=== PATIENT | female | born 1995 | race Caucasian/White ===

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

== ENCOUNTER → 2017-02-13 | Outpatient (CLI) | payer OTHER ==
[~2017-02-13] MED LIST changes: -CEFD300C2 PO; -CHOL1000 PO; -SULF800T23 PO
== END | disposition home or self-care (01) ==
LOC: C.LABSPEC 15:00
PROVIDERS: ATTEND Physician Assistant
DX: N89.8 Other specified noninflammatory disorders of vagina (principal)

== ENCOUNTER 2017-05-14 22:09 | Emergency (ER) | payer OTHER ==
[~2017-05-14] VITALS: Ht 160 cm; Wt 55.0 kg
[~2017-05-14 22:09] MED LIST changes: +SULF800T23 PO
[2017-05-14 22:11] VITALS: TEMP 36.7; Ht 160 cm; Wt 55.0 kg
[2017-05-14] MEDS ORDERED: CHOL1000 PO (22:53)
[2017-05-14 22:56] LABS: MANUAL MICROSCOPIC REQUIRED? YES; URINE APPEARANCE CLOUDY (CLEAR); URINE BILIRUBIN NEG (NEG); URINE COLOR YELLOW; URINE NITRITE POS (NEG); URINE SPECIFIC GRAVITY 1.025 (1.000-1.030); UROBILINOGEN POS (NEG)
[2017-05-14 23:01] LABS: REVIEW REQ? NO
[2017-05-14 23:03] LABS: URINE RBC >30 /hpf (0-4); URINE WBC >30 /hpf (0-5)
[2017-05-14 23:04] LABS: URINE BACTERIA 2+ (NEG); ZZUR CULT IF INDIC CLEAN CATCH YES
[2017-05-14] MEDS ORDERED: PHENAZOPYRIDINE HCL 200 MG TAB PO STA (23:08)
[2017-05-14] MEDS ORDERED: CEFDINIR 300 MG CAP PO STA (23:08)
[2017-05-14] MEDS ORDERED: CEFD300C2 PO (23:10)
[2017-05-14] MEDS ORDERED: PHENAZOPYRIDINE HOME PACK 200 MG VIAL PO ONE (23:15)
[2017-05-14 23:34] VITALS: BP 129/78; PULSE 80; O2SAT 98
--- NOTE | 2017-05-15 03:55 | EMERGENCY ROOM VISIT NOTE ---
ED Visit Note First contact with patient: 22:18 CHIEF COMPLAINT: Frequent and painful urination HISTORY OF PRESENT ILLNESS: This 21 year old female presents to the emergency department complaining of increased frequency of urination, burning pain with urination, and a feeling of incomplete voiding for the past 4 or 5 days. The patient initially went to an urgent care clinic and was started on Bactrim. She has been on this medication for 3 days without significant improvement of symptoms. The patient passes very small volumes of urine with each episode of voiding. The patient does not have abdominal pain. They deny back pain, fever , or vaginal discharge. The patient has not frequent urinary tract infections in the past. Patient feels they are not at risk for STIs. REVIEW OF SYSTEMS: A 6 system review of systems was completed with positives and pertinent negatives listed in the HPI. ALLERGIES: No known allergies MEDICATIONS: No chronic medication PMH: Otherwise healthy SOCIAL HISTORY: Lives locally PHYSICAL EXAM: Vital Signs: Reviewed Nurse's notes, vital signs stable. GENERAL : White female in no acute distress, they do not appear toxic, well-developed, well-nourished. HEART: Regular rate and rhythm without murmur gallop or rub LUNG: Clear to auscultation bilateral ABDOMEN: Positive bowel sounds x 4. The abdomen is soft, mildly tender in the suprapubic area, but no masses or organs are felt. There is no CVA tenderness. The skin is clear. NEURO: Alert and oriented to person place and time. EMERGENCY DEPARTMENT COURSE: Physical exam and history were performed. Nursing notes and EMR were reviewed. The patient appears to have signs and symptoms of a urinary tract infection. Urine was collected and urine dip is highly suggestive of a UTI with culture pending. The patient has been on Bactrim recently, and I will transition her to Omnicef. She is to follow with her primary care physician in the next few days. She was otherwise invited back to the ER with any new, worsening, or concerning symptoms. Problem List Medical Problems: (1) Ovarian cyst Status: Chronic Social History Problems: (1) Depo contraception Status: Chronic Current/Historical Medications Scheduled Control Pills ( Control Pills), 1 TAB PO DAILY Cefdinir (Omnicef), 300 MG PO Q12H Cholecalciferol (Vitamin D3), 1 TAB PO DAILY Sulfa/Trimethoprim (Bactrim Ds 800MG/160MG), 1 TAB PO BID Allergies Coded Allergies: No Known Allergies (Unverified , 05/14/17) Vital Signs Date Time Temp Pulse Resp B/P (MAP) Pulse Ox O2 Delivery O2 Flow Rate FiO2 05/14/17 23:34 80 18 129/78 98 Room Air 05/14/17 22:11 36.7 105 16 135/82 95 Room Air Laboratory Results Test 05/14/17 22:26 Urine Color YELLOW Urine Appearance CLOUDY (CLEAR) Urine pH 7.0 (4.5-7.5) Urine Specific [place] 1.025 (1.000-1.030) Urine Protein 3+ (NEG) Urine Glucose (UA) TRACE (NEG) Urine Ketones NEG (NEG) Urine Occult Blood 2+ (NEG) Urine Nitrite POS (NEG) Urine Bilirubin NEG (NEG) Urine Urobilinogen POS (NEG) Urine Leukocyte Esterase TRACE (NEG) Urine RBC >30 /hpf (0-4) Urine WBC >30 /hpf (0-5) Urine Epithelial Cells >30 /lpf (0-5) Urine Bacteria 2+ (NEG) Urine Test NEG (NEG) Medications Administered Medications (Trade) Dose Ordered Sig/Vivek Route Start Time Stop Time Status Last Admin Dose Admin Cefdinir (Omnicef Cap) 300 mg ONE STAT PO 05/14/17 23:08 05/14/17 23:09 DC 05/14/17 23:08 300 MG Phenazopyridine HCl (Phenazopyridine HCl 200MG Home Pack) 1 homepack UD ONCE PO 05/14/17 23:15 05/14/17 23:16 DC 05/14/17 23:15 1 HOMEPACK Phenazopyridine HCl (Pyridium Tab) 200 mg NOW STAT PO 05/14/17 23:08 05/14/17 23:09 DC 05/14/17 23:08 200 MG Departure Information Impression Primary Impression: Urinary tract infection Dispostion Home / Self-Care Condition GOOD Prescriptions Cefdinir (OMNICEF) 300 Mg Cap 300 MG PO Q12H for 10 Days, #20 CAP Prov: Jaswant Kevin PA-C 05/14/17 Referrals No Doctor, Assigned (PCP) Forms HOME CARE DOCUMENTATION FORM, IMPORTANT VISIT INFORMATION Patient Instructions My [facility] Additional Instructions You were seen and evaluated today on an emergency basis only. This is not a substitute for, or an effort to provide, complete comprehensive medical care. It is not possible to recognize and treat all injuries or illnesses in a single emergency department visit. For this reason it is recommended that you followup with your primary care physician with any ongoing or persistent symptoms. Take Pyridium 2-3 times daily to help with pain control. This will change the color of your urine. For baseline pain relief you may alternate ibuprofen and acetaminophen every 4 hours for pain control. Take 600 mg ibuprofen (Advil) and then 4 hours later take 1000 mg acetaminophen (Tylenol). Do not take more than 3000 mg acetaminophen in a single day. Take Omnicef 300 mg twice daily for the next 10 days. You are welcome to return to the emergency department anytime with new, worsening, or concerning symptoms.
== END 2017-05-14 23:34 | disposition home or self-care (01) ==
LOC: C.EDB 22:10 → C.EDA 23:34
DX: N39.0 Urinary tract infection, site not specified (principal); R30.9 Painful micturition, unspecified; R35.0 Frequency of micturition

== ENCOUNTER → 2017-07-06 | Outpatient (CLI) | payer OTHER ==
[~2017-07-06] MED LIST changes: +CHOL1000 PO
== END | disposition home or self-care (01) ==
LOC: C.LAB1850 09:20
PROVIDERS: ATTEND Physician Assistant
DX: N91.2 Amenorrhea, unspecified (principal)

== ENCOUNTER → 2017-08-17 | Outpatient (CLI) | payer OTHER | END | disposition home or self-care (01) | LOC: C.LABSPEC 12:19 | PROVIDERS: ATTEND Physician Assistant | DX: N89.8 Other specified noninflammatory disorders of vagina (principal); R30.0 Dysuria ==

== ENCOUNTER 2017-09-18 19:31 | Observation (INO) | payer OTHER ==
[~2017-09-18] VITALS: Ht 160 cm; Wt 49.2 kg
[2017-09-18] MEDS ORDERED: LORAZEPAM 0.5 MG TAB SL STA (19:48)
[2017-09-18] MEDS ORDERED: SODIUM CHLORIDE 0.9% 1000ML 2,000 ML IV STA (19:48)
--- NOTE | 2017-09-18 20:01 | EMERGENCY ROOM VISIT NOTE ---
History Report prepared by Christiano: Kristine Cloud Under the Supervision of: Dr. Mauro García M.D. First contact with patient: 19:33 Stated Complaint: ANXIETY History of Present Illness The patient is a 21 year old female who presents to the Emergency Room with complaints of persistent anxiety that began about an hour prior to arrival. The patient states that she did "ice" last night, noting she woke up feeling fine. She reports that this is the first time she does it and that she normally does not do drugs or consume alcohol. The patient states that she was driving to [place] with her friends earlier today, when she began experiencing a tingling feeling throughout her body. She asked her friend to drive once she began experiencing palpitations and chest tightness. While waiting for the ambulance to arrive to the scene, the patient states that her entire body went numb and she felt like she could not move. She denies any nausea, recent illness , suicidal ideations, or homicidal ideations. The patient reports a history of anxiety, noting that she has had panic attacks in the past, which have not felt anything similar to her symptoms today. During her panic attacks, the patient states that she starts shaking but is able to keep them under control. She reports a history of anxiety, depression, and irregular periods, noting she does not take any medications. The patient states that she has not had her menstrual in about 4 months, noting that she has lost 20 pounds unintentionally since then. Source of History: patient Onset: an hour prior to arrival Position: other (global) Quality: other (anxiety) Timing: other (persistent) Associated Symptoms: + numbness (numb), No nausea Note: Associated symptoms include: palpitations, chest tightness, and felt like she could not move. Patient denies: recent illness, suicidal ideations, or homicidal ideations Review of Systems See HPI for pertinent positives and negatives. A total of ten systems were reviewed and were otherwise negative. Past Medical & Surgical Medical Problems: (1) Heart palpitations (2) Hx: UTI (urinary tract infection) (3) Hypokalemia (4) Ovarian cyst Social History Problems: (1) Depo contraception Family History Cancer Hypertension Social History Smoking Status: Never Smoker Smokeless Tobacco Use: Unknown Alcohol Use: none Drug Use: none Marital Status: single Housing Status: lives with family Occupation Status: student Current/Historical Medications No Active Prescriptions or Reported Meds Allergies Coded Allergies: No Known Allergies (Unverified , 05/14/17) Physical Exam Vital Signs Date Time Temp Pulse Resp B/P (MAP) Pulse Ox O2 Delivery O2 Flow Rate FiO2 09/18/17 22:30 109 18 126/95 100 Room Air 09/18/17 22:15 106 26 100 Room Air 09/18/17 22:01 09/18/17 22:01 09/18/17 22:00 113 25 09/18/17 21:50 95 25 100 09/18/17 21:35 101 23 100 09/18/17 21:30 142/92 09/18/17 21:20 120 19 100 09/18/17 21:15 90 15 99 Room Air 09/18/17 21:10 148/96 09/18/17 21:01 118/98 09/18/17 21:00 116 17 100 Room Air 09/18/17 20:45 92 17 100 Room Air 09/18/17 20:30 136 26 136/91 100 09/18/17 20:16 112 23 93 Room Air 09/18/17 20:05 133/95 09/18/17 19:52 127 09/18/17 19:46 113 20 100 Room Air 09/18/17 19:39 134/111 09/18/17 19:38 36.8 121 22 134/111 100 Room Air Physical Exam GENERAL: Awake, alert, anxious-appearing but in no distress HENT: Dry mucous membranes. Normocephalic, atraumatic. Oropharynx unremarkable. EYES: Normal conjunctiva. Sclera non-icteric. IRINA. Pupils 3mm b/l. No nystagmus. NECK: Supple. No nuchal rigidity. FROM. No JVD. RESPIRATORY: Clear to auscultation. CARDIAC: Heartbeat is sinus tachycardic. Extremities warm and well perfused. Pulses equal. ABDOMEN: Soft, non-distended. No tenderness to palpation. No rebound or guarding. No masses. RECTAL: Deferred. MUSCULOSKELETAL: Chest examination reveals no tenderness. The back is symmetrical on inspection without obvious abnormality. There is no CVA tenderness to palpation. No joint edema. LOWER EXTREMITIES: Calves are equal size bilaterally and non-tender. No edema. No discoloration. NEURO: Normal reflexes. No clonus or rigidity. Finger to nose intact. No sensory or motor deficits noted. SKIN: No rash or jaundice noted. Medical Decision & Procedures ER Provider Diagnostic Interpretation: Radiology results as stated below per my review and radiologist interpretation: CHEST ONE VIEW PORTABLE CLINICAL HISTORY: Chest pain. Anxiety. COMPARISON STUDY: Chest radiograph and chest CT July 27, 2016. FINDINGS: Lung volumes are normal. No pneumothorax or pleural effusion is noted. Lungs are clear. Cardiac size is normal. Mediastinal contours are normal. There is no evidence for pulmonary edema. IMPRESSION: No acute cardiopulmonary findings. Electronically signed by: Elmer Palm M.D. 09/18/2017 8:16 PM Dictated Date/Time: 09/18/2017 8:15 PM Laboratory Results 09/18/17 19:10 Red Blood Count 4.71, Mean Corpuscular Volume 82.2, Mean Corpuscular Hemoglobin 28.5, Mean Corpuscular Hemoglobin Concent 34.6, Mean Platelet Volume 10.8, Neutrophils (%) (Auto) 61.5, Lymphocytes (%) (Auto) 30.0, Monocytes (%) (Auto) 7.7, Eosinophils (%) (Auto) 0.3, Basophils (%) (Auto) 0.3, Neutrophils # (Auto) 7.72, Lymphocytes # (Auto) 3.76, Monocytes # (Auto) 0.97, Eosinophils # (Auto) 0.04, Basophils # (Auto) 0.04 09/18/17 19:10 Test 09/18/17 19:10 09/18/17 20:10 White Blood Count 12.55 K/uL (4.8-10.8) Red Blood Count 4.71 M/uL (4.2-5.4) Hemoglobin 13.4 g/dL (12.0-16.0) Hematocrit 38.7 % (37-47) Mean Corpuscular Volume 82.2 fL (80-100) Mean Corpuscular Hemoglobin 28.5 pg (25-34) Mean Corpuscular Hemoglobin Concent 34.6 g/dl (32-36) Platelet Count 277 K/uL (130-400) Mean Platelet Volume 10.8 fL (7.4-10.4) Neutrophils (%) (Auto) 61.5 % Lymphocytes (%) (Auto) 30.0 % Monocytes (%) (Auto) 7.7 % Eosinophils (%) (Auto) 0.3 % Basophils (%) (Auto) 0.3 % Neutrophils # (Auto) 7.72 K/uL (1.4-6.5) Lymphocytes # (Auto) 3.76 K/uL (1.2-3.4) Monocytes # (Auto) 0.97 K/uL (0.11-0.59) Eosinophils # (Auto) 0.04 K/uL (0-0.5) Basophils # (Auto) 0.04 K/uL (0-0.2) RDW Standard Deviation 42.7 fL (36.4-46.3) RDW Coefficient of Variation 14.2 % (11.5-14.5) Immature Granulocyte % (Auto) 0.2 % Immature Granulocyte # (Auto) 0.02 K/uL (0.00-0.02) Anion Gap 13.0 mmol/L (3-11) Est Creatinine Clear Calc Drug Dose 65.8 ml/min Estimated GFR () 89.2 Estimated GFR (Non- 76.9 BUN/Creatinine Ratio 9.7 (10-20) Calcium Level 9.4 mg/dl (8.5-10.1) Phosphorus Level 1.4 mg/dl (2.5-4.9) Magnesium Level 2.3 mg/dl (1.8-2.4) Total Bilirubin 0.6 mg/dl (0.2-1) Direct Bilirubin 0.1 mg/dl (0-0.2) Aspartate Amino Transf (AST/SGOT) 19 U/L (15-37) Alanine Aminotransferase (ALT/SGPT) 22 U/L (12-78) Alkaline Phosphatase 81 U/L (45-117) Troponin I < 0.015 ng/ml (0-0.045) Total Protein 8.6 gm/dl (6.4-8.2) Albumin 4.9 gm/dl (3.4-5.0) Globulin 3.7 gm/dl (2.5-4.0) Albumin/Globulin Ratio 1.3 (0.9-2) Thyroid Stimulating Hormone (TSH) 6.460 uIu/ml (0.300-4.500) Free Thyroxine 1.45 ng/dl (0.80-1.60) Free Triiodothyronine 3.90 pg/ml (2.30-4.20) Urine Color YELLOW Urine Appearance TURBID (CLEAR) Urine pH 7.0 (4.5-7.5) Urine Specific [place] 1.009 (1.000-1.030) Urine Protein TRACE (NEG) Urine Glucose (UA) NEG (NEG) Urine Ketones 1+ (NEG) Urine Occult Blood 2+ (NEG) Urine Nitrite NEG (NEG) Urine Bilirubin NEG (NEG) Urine Urobilinogen NEG (NEG) Urine Leukocyte Esterase LARGE (NEG) Urine WBC (Auto) >30 /hpf (0-5) Urine RBC (Auto) 10-30 /hpf (0-4) Urine Hyaline Casts (Auto) 0 /lpf (0-5) Urine Epithelial Cells (Auto) >30 /lpf (0-5) Urine Bacteria (Auto) 4+ (NEG) Urine Pathogenic Casts /lpf (0) Urine Yeast (Auto) (NONE PRSENT) Urine Test NEG (NEG) Urine Opiates Screen NEG (NEG) Urine Methadone, Qualitative NEG (NEG) Urine Barbiturates NEG (NEG) Urine Phencyclidine (PCP) Level NEG (NEG) Ur Amphetamine/Methamphetamine POS (NEG) MDMA (Ecstasy) Screen NEG (NEG) Urine Benzodiazepines Screen NEG (NEG) Urine Cocaine Metabolite NEG (NEG) Urine Marijuana (THC) NEG (NEG) Ethyl Alcohol mg/dL < 3.0 mg/dl (0-3) Laboratory results reviewed by me Medications Administered Medications (Trade) Dose Ordered Sig/Vivek Route Start Time Stop Time Status Last Admin Dose Admin Sodium Chloride 2,000 ml @ 999 mls/hr Q2H1M STAT IV 09/18/17 19:48 09/18/17 21:48 DC 09/18/17 20:09 999 MLS/HR Lorazepam (Ativan Tab) 0.5 mg NOW STAT SL 09/18/17 19:48 09/18/17 19:51 DC 09/18/17 20:08 0.5 MG Potassium Chloride (Klor-Con M10) 40 meq NOW STAT PO 09/18/17 21:12 09/18/17 21:14 DC 09/18/17 21:42 40 MEQ Potassium Chloride 10 meq/ Prmx 100 ml @ 100 mls/hr Q1H IV 09/18/17 21:30 09/19/17 01:29 DC 09/19/17 01:01 100 MLS/HR Potassium Phosphate 30 mmol/ Sodium Chloride 510 ml @ 88 mls/hr ONE ONCE IV 09/18/17 22:15 09/19/17 04:02 09/19/17 00:16 88 MLS/HR ECG Per My Interpretation Indication: palpitations Rate (beats per minute): 116 Rhythm: sinus tachycardia Findings: no acute ischemic change, other (normal axis, normal intervals) ED Course 1937: The patient was evaluated in room A7. A complete history and physical exam was performed. 2202: I reevaluated the patient, who was resting comfortably. 2221: I reevaluated the patient. Her mother has a history of low potassium. 7: I discussed the patient with Dr. Christian Blunt [facility] - He will evaluate the patient for further treatment. 0: I reevaluated the patient and updated her and her family on test findings. They verbalized agreement of the treatment plan. Medical Decision I reviewed the patient's past medical history, medications, and the nursing notes as described above. Differential diagnosis: Etiologies such as mood disorder, infection, hypoglycemia, electrolyte abnormalities, cardiac sources, intracerebral event, toxicologic, neurologic, as well as others were entertained. 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 Of note, patient reports using ICE (meth) yesterday evening for the first time but denies any regular drug or etoh use. Awoke this morning without any sx. On arrival, the she is anxious appearing, but in no acute distress, afebrile, HR 130s but vital signs otherwise. On exam the patient has normal reflexes, no clonus or rigidity. She does not demonstrate any evidence of toxidrome at this time. Denies SI/HI or history thereof. WBC 12.5, nonspecific. Labs notable for K 2.4 and phosphorus 1.4. EKG sinus tachycardia with normal intervals and no ischemia. CXR unremarkable. Psych CM evaluated patient and while patient has intermittently had passive thoughts of "wanting 'it' to end" she denies any thoughts of wanting to hurt herself and says she would never want to the do that to her family. Thus, no concerns for patient's safety at this time. Regarding the patient's report of 30lb weight loss in the setting of her electrolyte abnormalities the patient denies any body image concerns and denies any bulemia/anorexia behaviors. Given the patient 's appreciable electrolyte abnormalities with associated symptoms (while possibly exacerbated by her h/o of anxiety), it is reasonable to admit the patient for continued electrolyte repletion. Case d/w [facility] hospitalist, who will admit the patient for further management. Medication Reconcilliation Current Medication List: was personally reviewed by me Blood Pressure Screening Patient's blood pressure: Normal blood pressure Blood pressure disposition: Did not require urgent referral Consults Time Called: [phone] Consulting Physician: LES Weiss Returned Call: [phone] I discussed the patient with LES Weiss - He will evaluate the patient for further treatment. Impression Primary Impression: Hypokalemia Additional Impressions: Hypophosphatemia Dehydration Scribe Attestation The scribe's documentation has been prepared under my direction and personally reviewed by me in its entirety. I confirm that the note above accurately reflects all work, treatment, procedures, and medical decision making performed by me. Departure Information Dispostion Being Evaluated By Hospitalist Prescriptions No Active Prescriptions or Reported Meds Referrals No Doctor, Assigned (PCP) Forms HOME CARE DOCUMENTATION FORM, IMPORTANT VISIT INFORMATION Problem Qualifiers
[2017-09-18 20:15] LABS: BASO % 0.3 %; BASO ABS # 0.04 K/uL (0-0.2); EOS % 0.3 %; EOS ABS # 0.04 K/uL (0-0.5); HEMATOCRIT 38.7 % (37-47); HEMOGLOBIN 13.4 g/dL (12.0-16.0); IG# 0.02 K/uL (0.00-0.02); LYMPH ABS # 3.76 K/uL (1.2-3.4); MEAN CELL VOLUME 82.2 fL (80-100); MEAN CORPUSCULAR HEMOGLOBIN 28.5 pg (25-34); MEAN CORPUSCULAR HGB CONC 34.6 g/dl (32-36); MEAN PLATELET VOLUME 10.8 fL (7.4-10.4); MONO % 7.7 %; MONO ABS # 0.97 K/uL (0.11-0.59); NEUT % 61.5 %; NEUT ABS # 7.72 K/uL (1.4-6.5); PLATELET COUNT 277 K/uL (130-400); RED CELL DISTRIBUTION WIDTH CV 14.2 % (11.5-14.5); RED CELL DISTRIBUTION WIDTH SD 42.7 fL (36.4-46.3); WHITE BLOOD COUNT 12.55 K/uL (4.8-10.8)
--- NOTE | 2017-09-18 20:17 | DIAGNOSTIC IMAGING REPORT ---
CHEST ONE VIEW PORTABLE CLINICAL HISTORY: Chest pain. Anxiety. COMPARISON STUDY: Chest radiograph and chest CT July 27, 2016. FINDINGS: Lung volumes are normal. No pneumothorax or pleural effusion is noted. Lungs are clear. Cardiac size is normal. Mediastinal contours are normal. There is no evidence for pulmonary edema. IMPRESSION: No acute cardiopulmonary findings. Electronically signed by: Elmer Palm M.D. 09/18/2017 8:16 PM Dictated Date/Time: 09/18/2017 8:15 PM
[2017-09-18 20:57] LABS: ALBUMIN 4.9 gm/dl (3.4-5.0); ALT/SGPT 22 U/L (12-78); AST/SGOT 19 U/L (15-37); BLOOD UREA NITROGEN 10 mg/dl (7-18); CALCIUM 9.4 mg/dl (8.5-10.1); CARBON DIOXIDE 19 mmol/L (21-32); CREATININE 1.05 mg/dl (0.60-1.20); GLUCOSE 103 mg/dl (70-99); POTASSIUM 2.4 mmol/L (3.5-5.1); SODIUM 136 mmol/L (136-145); TOTAL PROTEIN 8.6 gm/dl (6.4-8.2)
[2017-09-18 20:59] LABS: ALKALINE PHOSPHATASE 81 U/L (45-117)
[2017-09-18] MEDS ORDERED: POTASSIUM CHLORIDE 10 MEQ TABCR PO STA (21:12)
[2017-09-18] MEDS ORDERED: POTASSIUM CHLR 20 MEQ / WTR 40 MEQ in PREMIXED WATER 100 ML IV STA (21:12)
[2017-09-18] MEDS: POTASSIUM CHLR 10MEQ / WTR IV SCH ×2 (21:42→22:56)
[2017-09-18 21:56] LABS: PHOSPHORUS 1.4 mg/dl (2.5-4.9)
[2017-09-18] MEDS ORDERED: POTASSIUM PHOSPHATE INJ 30 MMOL in SODIUM CHLORIDE 0.9% 500ML 500 ML IV ONE (22:15)
[2017-09-18] MEDS ORDERED: POTASSIUM PHOS 3 MMOL/1 ML INFUSION IV STA ×2 (22:22→22:26)
[2017-09-18] MEDS ORDERED: SODIUM CHLORIDE 0.9% 1000ML 1,000 ML IV STA (22:26)
[2017-09-18] MEDS ORDERED: ALUMINUM/MAGNESIUM/SIMETH (MAALOX MAX) 30 ML UDC PO PRN (22:30)
[2017-09-18] MEDS ORDERED: MAGNESIUM HYDROXIDE SUSP 30 ML UDC PO PRN (22:30)
[2017-09-18] MEDS ORDERED: ONDANSETRON INJ 2 MG/ML 2 ML VIAL IV PRN (22:30)
[2017-09-18] MEDS ORDERED: POTASSIUM CHLR 10 MEQ / WTR 10 MEQ in PREMIXED WATER 100 ML IV SCH (22:30)
[2017-09-18] MEDS ORDERED: ACETAMINOPHEN 325 MG TAB PO PRN (22:30)
--- NOTE | 2017-09-18 23:32 | History and Physical ---
History & Physical Date & Time of Service: Sep 18, 2017 at 22:25 Chief Complaint: Anxiety Primary Care Physician: No Doctor, Assigned History of Present Illness Source: patient 21 y/o F without active medical issues. 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 Today, while driving she became lightheaded. She pulled over and then describes onset of anxiety, chest tightness, palpitations, generalized muscle cramps and paresthesias. She felt like she could not talk or support her weight. Her symptoms lasted several minutes prompting her to call EMS. On arrival to the ER, initial labs revealed a K of 2.4 and a low phos as well. An EKG revealed sinus tachycardia. She denies nausea, vomiting or diarrhea and denies a change in eating habits related to her drug use the prior evening. Past Medical/Surgical History Denies active medical issues Family History No pertinent family history Both parents alive and well Social History Denies drinking, smoking. Denies regular use of any drugs. Smoking Status: Never Smoker Drug Use: none Marital Status: single Occupational Status: student Allergies Coded Allergies: No Known Allergies (Unverified , 05/14/17) Home Medications No Active Prescriptions or Reported Meds Review of Systems Constitutional: No fever, No chills, No sweats Eyes: No worsening of vision ENT: No hearing loss, No nasal symptoms Respiratory: No cough, No sputum, No wheezing Cardiovascular: + chest pain, + palpitations Abdomen: No pain, No nausea, No vomiting Musculoskeletal: + muscle pain (widespread cramping), No joint pain Genitourinary - Female: No dysuria, No urinary frequency, No urinary urgency Neurologic: + numbness/tingling, + problem reported (lightheadedness), No memory loss, No paralysis Psychiatric: No depression symptoms Endocrine: No fatigue Hematologic / Lymphatic: No abnormal bleeding/bruising Integumentary: No rash Physical Exam Vital Signs Date Time Temp Pulse Resp B/P (MAP) Pulse Ox O2 Delivery O2 Flow Rate FiO2 09/18/17 22:01 09/18/17 21:50 95 25 100 09/18/17 21:35 101 23 100 09/18/17 21:30 142/92 09/18/17 21:20 120 19 100 09/18/17 21:15 90 15 99 Room Air 09/18/17 21:10 148/96 09/18/17 21:01 118/98 09/18/17 21:00 116 17 100 Room Air 09/18/17 20:45 92 17 100 Room Air 09/18/17 20:30 136 26 136/91 100 09/18/17 20:16 112 23 93 Room Air 09/18/17 20:05 133/95 09/18/17 19:52 127 09/18/17 19:46 113 20 100 Room Air 09/18/17 19:39 134/111 09/18/17 19:38 36.8 121 22 134/111 100 Room Air General Appearance: WD/WN Head: normocephalic Eyes: normal inspection ENT: normal ENT inspection, pharynx normal Neck: supple, no JVD Respiratory/Chest: chest non-tender, lungs clear, normal breath sounds Cardiovascular: regular rate, rhythm, no edema, no gallop Abdomen/GI: normal bowel sounds, non tender, soft Back: normal inspection, no CVA tenderness Extremities/Musculoskelatal: normal inspection, no calf tenderness, normal capillary refill 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, no motor/sensory deficits, alert, oriented x 3 Skin: normal color Diagnostics Laboratory Results Results Past 24 Hours Test 09/18/17 19:10 09/18/17 20:10 Range/Units White Blood Count 12.55 4.8-10.8 K/uL Red Blood Count 4.71 4.2-5.4 M/uL Hemoglobin 13.4 12.0-16.0 g/dL Hematocrit 38.7 37-47 % Mean Corpuscular Volume 82.2 80-100 fL Mean Corpuscular Hemoglobin 28.5 25-34 pg Mean Corpuscular Hemoglobin Concent 34.6 32-36 g/dl Platelet Count 277 130-400 K/uL Mean Platelet Volume 10.8 7.4-10.4 fL Neutrophils (%) (Auto) 61.5 % Lymphocytes (%) (Auto) 30.0 % Monocytes (%) (Auto) 7.7 % Eosinophils (%) (Auto) 0.3 % Basophils (%) (Auto) 0.3 % Neutrophils # (Auto) 7.72 1.4-6.5 K/uL Lymphocytes # (Auto) 3.76 1.2-3.4 K/uL Monocytes # (Auto) 0.97 0.11-0.59 K/uL Eosinophils # (Auto) 0.04 0-0.5 K/uL Basophils # (Auto) 0.04 0-0.2 K/uL RDW Standard Deviation 42.7 36.4-46.3 fL RDW Coefficient of Variation 14.2 11.5-14.5 % Immature Granulocyte % (Auto) 0.2 % Immature Granulocyte # (Auto) 0.02 0.00-0.02 K/uL Sodium Level 136 136-145 mmol/L Potassium Level 2.4 3.5-5.1 mmol/L Chloride Level 103 98-107 mmol/L Carbon Dioxide Level 19 21-32 mmol/L Anion Gap 13.0 3-11 mmol/L Blood Urea Nitrogen 10 7-18 mg/dl Creatinine 1.05 0.60-1.20 mg/dl Est Creatinine Clear Calc Drug Dose 65.8 ml/min Estimated GFR () 89.2 Estimated GFR (Non- 76.9 BUN/Creatinine Ratio 9.7 10-20 Random Glucose 103 70-99 mg/dl Calcium Level 9.4 8.5-10.1 mg/dl Phosphorus Level 1.4 2.5-4.9 mg/dl Magnesium Level 2.3 1.8-2.4 mg/dl Total Bilirubin 0.6 0.2-1 mg/dl Direct Bilirubin 0.1 0-0.2 mg/dl Aspartate Amino Transf (AST/SGOT) 19 15-37 U/L Alanine Aminotransferase (ALT/SGPT) 22 12-78 U/L Alkaline Phosphatase 81 45-117 U/L Troponin I < 0.015 0-0.045 ng/ml Total Protein 8.6 6.4-8.2 gm/dl Albumin 4.9 3.4-5.0 gm/dl Globulin 3.7 2.5-4.0 gm/dl Albumin/Globulin Ratio 1.3 0.9-2 Thyroid Stimulating Hormone (TSH) 6.460 0.300-4.500 uIu/ml Urine Color YELLOW Urine Appearance TURBID CLEAR Urine pH 7.0 4.5-7.5 Urine Specific [place] 1.009 1.000-1.030 Urine Protein TRACE NEG Urine Glucose (UA) NEG NEG Urine Ketones 1+ NEG Urine Occult Blood 2+ NEG Urine Nitrite NEG NEG Urine Bilirubin NEG NEG Urine Urobilinogen NEG NEG Urine Leukocyte Esterase LARGE NEG Urine WBC (Auto) >30 0-5 /hpf Urine RBC (Auto) 10-30 0-4 /hpf Urine Hyaline Casts (Auto) 0 0-5 /lpf Urine Epithelial Cells (Auto) >30 0-5 /lpf Urine Bacteria (Auto) 4+ NEG Urine Pathogenic Casts 0 /lpf Urine Yeast (Auto) NONE PRSENT Urine Test NEG NEG Urine Opiates Screen NEG NEG Urine Methadone, Qualitative NEG NEG Urine Barbiturates NEG NEG Urine Phencyclidine (PCP) Level NEG NEG Ur Amphetamine/Methamphetamine POS NEG MDMA (Ecstasy) Screen NEG NEG Urine Benzodiazepines Screen NEG NEG Urine Cocaine Metabolite NEG NEG Urine Marijuana (THC) NEG NEG Ethyl Alcohol mg/dL < 3.0 0-3 mg/dl EKG Sinus tachycardia Impression Assessment and Plan 21 y/o F without active medical issues. 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 Today, while driving she became lightheaded. She pulled over and then describes onset of anxiety, chest tightness, palpitations, generalized muscle cramps and paresthesias. She felt like she could not talk or support her weight. Her symptoms lasted several minutes prompting her to call EMS. On arrival to the ER, initial labs revealed a K of 2.4 and a low phos as well. An EKG revealed sinus tachycardia. She denies nausea, vomiting or diarrhea and denies a change in eating habits related to her drug use the prior evening. The pt is assigned to telemetry as her symptoms may presumably have been the result of her electrolyte abnormalities. There is no clear connection between amphetamine use and hypokalemia or hypophosphatemia on review of literature. The pt denies that her regular diet was interrupted and denies nausea, vomiting or diarrhea. She has been encouraged not to use amphetamines in the future regardless. She will be monitored on telemetry as we replace her electrolytes. BMP will be checked serially. As we do not have a clear etiology for her deficiencies, it would be reasonable to request she check her electrolytes a few days following discharge and follow the results with her primary MD. Full code - Heparin prophylaxis Total time for this admit including review of labs, meds, EKG - discussion with pt and ER attending - 38 min Level of Care Telemetry Resuscitation Status FULL RESUSCITATION VTE Prophylaxis Given or contraindicated: Unfractionated heparin SQ
[2017-09-19 00:05] VITALS: BP 132/89; PULSE 91; TEMP 36.9; O2SAT 98; Ht 160 cm; Wt 49.2 kg
[2017-09-19] MEDS ORDERED: D5NSS + 20MEQ KCL 1,000 ML IV SCH (00:30)
[2017-09-19] MEDS ORDERED: IV FLUIDS COMPLETED PRN (01:00)
[2017-09-19] MEDS: POTASSIUM CHLR 10MEQ / WTR IV SCH ×2 (01:01→01:57)
[2017-09-19] MEDS: POT PHOSPHATE MONOBASIC W/ SOD TAB PO SCH ×2 (01:39→07:32)
[2017-09-19] MEDS ORDERED: COUGH DROP (SUGAR FREE) LOZ 24 LOZ/1 BOX LOZ ONE (01:41)
[2017-09-19 04:00] VITALS: BP 120/80; PULSE 71; TEMP 36.7; O2SAT 100
[2017-09-19 05:06] LABS: BLOOD UREA NITROGEN 6 mg/dl (7-18); CALCIUM 8.3 mg/dl (8.5-10.1); CARBON DIOXIDE 21 mmol/L (21-32); CREATININE 0.63 mg/dl (0.60-1.20); GLUCOSE 101 mg/dl (70-99); SODIUM 139 mmol/L (136-145)
[2017-09-19 05:08] LABS: PHOSPHORUS 6.2 mg/dl (2.5-4.9)
[2017-09-19 05:11] LABS: INR 1.1 (0.9-1.1)
[2017-09-19 05:48] LABS: POTASSIUM 4.4 mmol/L (3.5-5.1)
[2017-09-19] MEDS ORDERED: HEPARIN SOD 5000 UNIT/0.5 ML CARP SQ SCH (06:30)
[2017-09-19 07:39] VITALS: BP 104/64; PULSE 94; TEMP 37; O2SAT 99
[2017-09-19 09:42] LABS: CALCIUM 8.8 mg/dl (8.5-10.1); CREATININE 0.68 mg/dl (0.60-1.20)
--- NOTE | 2017-09-19 10:43 | Discharge Summary ---
Discharge Summary Date of Service Sep 19, 2017. Discharge Summary Admission Date: Sep 18, 2017 at 22:38 Discharge Date: Sep 19, 2017 Discharge Disposition: Home Principal Diagnosis: Palpitations Problems/Secondary Diagnoses: hypokalemia unexplained weight loss fatigue amenorrhea Discharge Exam Pt is resting comfortably in bed. Reports chronic anxiety and depression, with 1 anxiety attack per week. 5month h/o amenorrhea and fatigue and unexplained weight loss of approx 20 pounds. Reports being a good eater. Recent use of recreational amphetamine substance "Ice" 2 days ago, slept well 2 hours later, went to work with no issues the following day, and then yesterday afternoon began feeling whole body cramps, palpitations, shortness of breath and tingling. Feels a heaviness in her chest. Denies diarrhea/constipation, fevers/chills, or sick contacts. Reports her mother has low potassium. ROS See HPI for pertinent positives and negatives. PE GENERAL: Awake, alert, well-appearing, in no distress HENT: Normocephalic, atraumatic. Good dentition. EYES: Normal conjunctiva. Sclera non-icteric. NECK: Supple. No nuchal rigidity. FROM. No JVD. No thyromegaly. RESPIRATORY: Clear to auscultation. CARDIAC: Regular rate, normal rhythm. Extremities warm and well perfused. Pulses equal. ABDOMEN: Soft, non-distended. No tenderness to palpation. No rebound or guarding. No masses. EXTREMITIES: Calves are equal size bilaterally and non-tender. No edema. No discoloration. No evidence of scarring or lesions on dorsal surfaces of hands. NEURO: No motor deficits noted. SKIN: No rash or jaundice noted. Hospital Course Ms. Villalba is a 21 yo female admitted for heart palpitations and found to have hypokalemia of 2.4. Supplemented, potassium normal on discharge. Discussed pt's recent medical history. 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 She reports chronic anxiety, for which she has been on an antidepressant, amenorrhea and fatigue and unexplained weight loss 20 lbs for about 5 months. 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 Urine was positive for amphetamine. Pt denies excessive dieting. Says she was seen by [facility] [place] assistant for amenorrhea, but has not followed up with ultrasound at this point. Pt lives alone, 10 minutes from her mother's house. Symptoms are hard to link together to one source, as TSH is elevated but T3 and T4 are both normal. Other tests to consider are PTH and Vit D given mildly low PO4. EKG was normal here. Otherwise psychology may be a component. Hypokalemia unlikely due to amphetamine use. Will follow up with PCP Dr. Bronson Adams in clinic in 1 week. Repeat BMP recommended in 2-3 days. Resident Physician Supervision Note: I was present with Dr. Adams during the history and exam. I discussed the case with the resident and agree with the findings and plan as documented in the note. Potassium is corrected. Patient reports three to six month history of amenorrhea, fatigue, and weight loss. It is unclear if this is related to her acute hypokalemia, and will need further investigation as an outpatient. She does not have a PCP but will now follow up in our office a week from today. Her TSH was slightly elevated, but T4 was normal; she has symptoms of both hyperthyroidism (weight loss) and hypothyroidism (amenorrhea). Documented By: Jeff Alba Total Time Spent: Less than 30 minutes This includes examination of the patient, discharge planning, medication reconciliation, and communication with other providers. Discharge Instructions Please refer to the electronic Patient Visit Report (Discharge Instructions) for additional information. Additional Copies To Hayley Adams M.D.
[2017-09-19 10:50] VITALS: BP 114/75; PULSE 83; TEMP 37; O2SAT 99
--- NOTE | 2017-09-19 10:52 | Discharge Instructions ---
Discharge Instructions Date of Service Sep 19, 2017. Admission Reason for Admission: Heart Pallpitations, Hypokalemia Discharge Discharge Diagnosis / Problem: Heart palpitations, hypokalemia Discharge Goals Goal(s): Decrease discomfort, Improve function, Learn about illness, Diagnostic testing, Therapeutic intervention Activity Recommendations Activity Limitations: resume your previous activity . Instructions / Follow-Up Instructions / Follow-Up You were admitted due to palpitations and cramping and found to have a low potassium of 2.4. We repleted your electrolytes, and these are normal this morning, however we recommend this be rechecked in 2-3 days to ensure that they remain normal. Your urine was positive for amphetamines. We discussed stopping all recreational drug use due to its inherent risks. If you feel you need additional counseling or support or you think you are addicted, please discuss this with your primary care physician. You also report other symptoms of fatigue, missed periods and weight loss. This should be discussed with your primary care physician as it may be due to an underlying problem with your hormones. Your TSH was elevated which may or may not be related. This will require further work up with your primary care physician. Please keep your appointment with me in the office for next Sunday afternoon. I look forward to seeing you then. Current Hospital Diet Patient's current hospital diet: Regular Diet Discharge Diet Recommended Diet: Regular Diet Pending Studies Studies pending at discharge: no Medical Emergencies . Who to Call and When: Medical Emergencies: If at any time you feel your situation is an emergency, please call 911 immediately. . Non-Emergent Contact Non-Emergency issues call your: Primary Care Provider . . "Provider Documentation" section prepared by Hayley Adams. .
[2017-09-19 12:26] LABS: BLOOD UREA NITROGEN 5 mg/dl (7-18); CALCIUM 8.4 mg/dl (8.5-10.1); CARBON DIOXIDE 22 mmol/L (21-32); CREATININE 0.62 mg/dl (0.60-1.20); GLUCOSE 101 mg/dl (70-99); POTASSIUM 3.8 mmol/L (3.5-5.1); SODIUM 138 mmol/L (136-145)
[2017-09-19 13:09] VITALS: BP 114/75; PULSE 83; TEMP 37; O2SAT 99
[2017-09-19] MEDS ORDERED: HYDR25CA PO (19:14)
== END 2017-09-19 14:07 | disposition home or self-care (01) ==
LOC: EDBD 19:31 → C.EDA 19:32 → C.2T 22:38 → ENRESERV 22:51
PROVIDERS: ADMIT Internal Medicine; ATTEND Family Medicine
DX: R00.2 Palpitations (principal); E87.6 Hypokalemia; R63.4 Abnormal weight loss; R53.83 Other fatigue; N91.2 Amenorrhea, unspecified; F15.10 Other stimulant abuse, uncomplicated; Z80.9 Family history of malignant neoplasm, unspecified; Z82.49 Family history of ischemic heart disease and other diseases of the circulatory system

== ENCOUNTER 2017-09-19 16:53 | Emergency (ER) | payer OTHER ==
[~2017-09-19] VITALS: Ht 160 cm; Wt 69.1 kg
[2017-09-19 17:04] VITALS: TEMP 36.7; Ht 160 cm; Wt 69.1 kg
[2017-09-19] MEDS: SODIUM CHLORIDE 0.9% 1000ML 1,000 ML IV STA (17:19)
--- NOTE | 2017-09-19 17:47 | DIAGNOSTIC IMAGING REPORT ---
CHEST ONE VIEW PORTABLE CLINICAL HISTORY: palpitations COMPARISON STUDY: September 18, 2017 FINDINGS: The cardiac and mediastinal contours are normal. There is no evidence of focal pulmonary consolidation. There is no evidence of failure. No pleural effusions are visualized.[ IMPRESSION: No active disease in the chest. Electronically signed by: Matt Ritter M.D. 09/19/2017 5:45 PM Dictated Date/Time: 09/19/2017 5:45 PM
[2017-09-19 18:04] LABS: BASO % 0.3 %; BASO ABS # 0.03 K/uL (0-0.2); EOS % 1.8 %; EOS ABS # 0.17 K/uL (0-0.5); HEMATOCRIT 35.6 % (37-47); HEMOGLOBIN 12.1 g/dL (12.0-16.0); IG# 0.02 K/uL (0.00-0.02); MEAN CORPUSCULAR HEMOGLOBIN 28.5 pg (25-34); MEAN PLATELET VOLUME 10.6 fL (7.4-10.4); MONO % 8.3 %; NEUT % 61.4 %; NEUT ABS # 5.92 K/uL (1.4-6.5); PLATELET COUNT 253 K/uL (130-400); RED CELL DISTRIBUTION WIDTH CV 14.6 % (11.5-14.5); RED CELL DISTRIBUTION WIDTH SD 45.3 fL (36.4-46.3); WHITE BLOOD COUNT 9.64 K/uL (4.8-10.8)
[2017-09-19 18:23] LABS: ALT/SGPT 18 U/L (12-78); AST/SGOT 13 U/L (15-37); BLOOD UREA NITROGEN 6 mg/dl (7-18); CARBON DIOXIDE 21 mmol/L (21-32); CREATININE 0.71 mg/dl (0.60-1.20); GLUCOSE 92 mg/dl (70-99); POTASSIUM 3.8 mmol/L (3.5-5.1); SODIUM 138 mmol/L (136-145)
[2017-09-19 18:28] LABS: ALKALINE PHOSPHATASE 70 U/L (45-117); TOTAL PROTEIN 7.6 gm/dl (6.4-8.2)
[2017-09-19] MEDS ORDERED: HYDR25CA PO (19:14)
[2017-09-19] MEDS: hydrOXYzine HCL 25 MG TAB PO STA (19:18)
[2017-09-19 19:28] VITALS: BP 117/89; PULSE 70; O2SAT 100
--- NOTE | 2017-09-20 00:25 | EMERGENCY ROOM VISIT NOTE ---
History Report prepared by Christiano: Aylin Crowe Under the Supervision of: Dr. Nick Hernandez D.O. First contact with patient: 17:08 Chief Complaint: ANXIETY Stated Complaint: ANXIETY History of Present Illness The patient is a 21 year old female who presents to the Emergency Room with complaints of persistent anxiety starting 1 hour ago. She went to take a nap today when she noticed tingling in her fingertips and pounding heart. She felt anxious. She is unsure what might have triggered her symptoms. The patient was admitted to the hospital last night for the same symptoms and discharged home today. She is having sharp mid chest pain with the palpitations. She denies any abdominal pain, nausea, vomiting, or diarrhea. She denies any thoughts of hurting herself or others. She notes that she tried meth for the first time 2 days ago. She denies any further drug use. She has a history of anxiety. Source of History: patient Onset: 1 hour ago Position: other (global) Quality: other (anxiety) Timing: other (persistent) Associated Symptoms: + chest pain, No nausea, No vomiting, No abdominal pain , No diarrhea Note: Pt reports tingling, palpitations. Review of Systems See HPI for pertinent positives & negatives. A total of 10 systems reviewed and were otherwise negative. Past Medical & Surgical Medical Problems: (1) Heart palpitations (2) Hx: UTI (urinary tract infection) (3) Hypokalemia (4) Ovarian cyst Social History Problems: (1) Depo contraception Family History Cancer Hypertension Social History Smoking Status: Never Smoker Alcohol Use: none Drug Use: none Marital Status: single Housing Status: lives with family Occupation Status: student Current/Historical Medications Scheduled Hydroxyzine Pamoate (Vistaril), 1 CAP PO BID Allergies Coded Allergies: No Known Allergies (Unverified , 09/19/17) Physical Exam Vital Signs Date Time Temp Pulse Resp B/P (MAP) Pulse Ox O2 Delivery O2 Flow Rate FiO2 09/19/17 19:28 70 20 117/89 100 09/19/17 18:29 72 19 115/86 100 09/19/17 17:58 75 20 118/92 100 Room Air 09/19/17 17:04 36.7 84 20 114/65 94 Room Air Physical Exam GENERAL: Sitting up in bed, alert, well appearing, well nourished, no distress, non-toxic EYE EXAM: normal conjunctiva. PERRL and EOM's intact. OROPHARYNX: no exudate, no erythema, lips, buccal mucosa, and tongue normal and mucous membranes are moist NECK: supple, no nuchal rigidity, no adenopathy, non-tender LUNGS: Clear to auscultation. Normal chest wall mechanics HEART: no murmurs, S1 normal and S2 normal ABDOMEN: abdomen soft, non-tender, normo-active bowel sounds, no masses, no rebound or guarding. BACK: Back is symmetrical on inspection and there is no deformity, no midline tenderness, no CVA tenderness. SKIN: no rashes and no bruising UPPER EXTREMITIES: upper extremities are grossly normal. LOWER EXTREMITIES: No pitting edema. NEURO EXAM: Normal sensorium, cranial nerves II-XII intact, normal speech, no weakness of arms, no weakness of legs. No drift. Finger to nose intact. Gross sensation intact. Medical Decision & Procedures ER Provider Diagnostic Interpretation: Xray results as stated below per my and the radiologist's interpretation: CHEST ONE VIEW PORTABLE CLINICAL HISTORY: palpitations COMPARISON STUDY: September 18, 2017 FINDINGS: The cardiac and mediastinal contours are normal. There is no evidence of focal pulmonary consolidation. There is no evidence of failure. No pleural effusions are visualized.[ IMPRESSION: No active disease in the chest. Electronically signed by: Matt Ritter M.D. 09/19/2017 5:45 PM Dictated Date/Time: 09/19/2017 5:45 PM Laboratory Results 09/19/17 17:39 Red Blood Count 4.24, Mean Corpuscular Volume 84.0, Mean Corpuscular Hemoglobin 28.5, Mean Corpuscular Hemoglobin Concent 34.0, Mean Platelet Volume 10.6, Neutrophils (%) (Auto) 61.4, Lymphocytes (%) (Auto) 28.0, Monocytes (%) (Auto) 8.3, Eosinophils (%) (Auto) 1.8, Basophils (%) (Auto) 0.3, Neutrophils # (Auto) 5.92, Lymphocytes # (Auto) 2.70, Monocytes # (Auto) 0.80, Eosinophils # (Auto) 0.17, Basophils # (Auto) 0.03 09/19/17 17:39 Test 09/19/17 17:02 09/19/17 17:39 09/19/17 17:44 Urine Color YELLOW Urine Appearance CLEAR (CLEAR) Urine pH 7.5 (4.5-7.5) Urine Specific [place] 1.007 (1.000-1.030) Urine Protein NEG (NEG) Urine Glucose (UA) NEG (NEG) Urine Ketones NEG (NEG) Urine Occult Blood NEG (NEG) Urine Nitrite NEG (NEG) Urine Bilirubin NEG (NEG) Urine Urobilinogen NEG (NEG) Urine Leukocyte Esterase SMALL (NEG) Urine WBC (Auto) 10-30 /hpf (0-5) Urine RBC (Auto) 0-4 /hpf (0-4) Urine Hyaline Casts (Auto) 0 /lpf (0-5) Urine Epithelial Cells (Auto) >30 /lpf (0-5) Urine Bacteria (Auto) NEG (NEG) Urine Test NEG (NEG) Urine Opiates Screen NEG (NEG) Urine Methadone, Qualitative NEG (NEG) Urine Barbiturates NEG (NEG) Urine Phencyclidine (PCP) Level NEG (NEG) Ur Amphetamine/Methamphetamine POS (NEG) MDMA (Ecstasy) Screen NEG (NEG) Urine Benzodiazepines Screen NEG (NEG) Urine Cocaine Metabolite NEG (NEG) Urine Marijuana (THC) NEG (NEG) White Blood Count 9.64 K/uL (4.8-10.8) Red Blood Count 4.24 M/uL (4.2-5.4) Hemoglobin 12.1 g/dL (12.0-16.0) Hematocrit 35.6 % (37-47) Mean Corpuscular Volume 84.0 fL (80-100) Mean Corpuscular Hemoglobin 28.5 pg (25-34) Mean Corpuscular Hemoglobin Concent 34.0 g/dl (32-36) Platelet Count 253 K/uL (130-400) Mean Platelet Volume 10.6 fL (7.4-10.4) Neutrophils (%) (Auto) 61.4 % Lymphocytes (%) (Auto) 28.0 % Monocytes (%) (Auto) 8.3 % Eosinophils (%) (Auto) 1.8 % Basophils (%) (Auto) 0.3 % Neutrophils # (Auto) 5.92 K/uL (1.4-6.5) Lymphocytes # (Auto) 2.70 K/uL (1.2-3.4) Monocytes # (Auto) 0.80 K/uL (0.11-0.59) Eosinophils # (Auto) 0.17 K/uL (0-0.5) Basophils # (Auto) 0.03 K/uL (0-0.2) RDW Standard Deviation 45.3 fL (36.4-46.3) RDW Coefficient of Variation 14.6 % (11.5-14.5) Immature Granulocyte % (Auto) 0.2 % Immature Granulocyte # (Auto) 0.02 K/uL (0.00-0.02) D-Dimer < 190 ug/L FEU (0-500) Anion Gap 9.0 mmol/L (3-11) Est Creatinine Clear Calc Drug Dose 118.8 ml/min Estimated GFR () 143.1 Estimated GFR (Non- 123.5 BUN/Creatinine Ratio 9.0 (10-20) Calcium Level 9.0 mg/dl (8.5-10.1) Total Bilirubin 0.4 mg/dl (0.2-1) Direct Bilirubin < 0.1 mg/dl (0-0.2) Aspartate Amino Transf (AST/SGOT) 13 U/L (15-37) Alanine Aminotransferase (ALT/SGPT) 18 U/L (12-78) Alkaline Phosphatase 70 U/L (45-117) Troponin I < 0.015 ng/ml (0-0.045) Total Protein 7.6 gm/dl (6.4-8.2) Albumin 4.0 gm/dl (3.4-5.0) Ethyl Alcohol mg/dL < 3.0 mg/dl (0-3) Bedside Glucose 97 mg/dl (70-90) Laboratory results per my review. Medications Administered Medications (Trade) Dose Ordered Sig/Vivek Route Start Time Stop Time Status Last Admin Dose Admin Sodium Chloride 1,000 ml @ 999 mls/hr Q1H1M STAT IV 09/19/17 17:19 09/19/17 18:19 DC 09/19/17 17:19 999 MLS/HR Hydroxyzine HCl (Vistaril Tab) 25 mg NOW STAT PO 09/19/17 19:18 09/19/17 19:20 DC 09/19/17 19:18 25 MG ECG Per My Interpretation Indication: chest pain Rate (beats per minute): 84 Rhythm: sinus rhythm Findings: no ectopy, other (normal axis, normal intervals, no PVC) ED Course ED COURSE: Vital signs were reviewed and showed normal vitals. The patients medical record was reviewed The above diagnostic studies were performed and reviewed. ED treatments and interventions as stated above. 1712: The patient was evaluated in room A8. A complete history and physical examination was performed. 1719: NSS 1000 ml @ 999 mls/hr IV. 1912: Upon reevaluation, the patient is resting comfortably. I discussed my findings with the patient and she understands and agrees with the treatment plan. Based on the patients age, coexisting illnesses, exam and lab findings the decision to treat as an outpatient was made. The patient remained stable while under my care. The patient appeared well at the time of discharge. Medical Decision Differential diagnosis includes etiologies such as premature contractions, electrolyte abnormality, cardiac dysrhythmia, thyroid dysfunction, pulmonary embolism, infection, gastrointestinal, as well as others were entertained. Patient is a 21-year-old female who presents to ER for tingling in her hands and distal lower extremities which worsens. She felt her heart racing at this point. She felt very lightheaded and had some chest pain shortness of breath. She had the exact same symptoms 24 hours ago for which she was observed. She is observed due to or joint abnormalities. On exam she complete neurologically intact. CBC all BMP, LFTs, bilirubin and troponin was unremarkable. D-dimer was negative. UA was negative, and alcohol is negative. Patient denies any amphetamine use today. Based on her presentation I do believe this consistent with anxiety. She was seen by psychiatry. She denies any suicidal or homicidal ideations. She was discharged with Vistaril instructed to follow-up with PCP as an outpatient. Discussed with Pt concerning signs and symptoms to watch out for. Pt was instructed to follow up with their PCP and discussed with the patient their option to return to the ED at anytime for persistent or worsening symptoms. The appropriate anticipatory guidance and out-patient management, including indications for return to the emergency department, were explained at length to the patient and understood. Medication Reconcilliation Current Medication List: was personally reviewed by me Blood Pressure Screening Patient's blood pressure: Normal blood pressure Blood pressure disposition: Did not require urgent referral Impression Primary Impression: Acute anxiety Scribe Attestation The scribe's documentation has been prepared under my direction and personally reviewed by me in its entirety. I confirm that the note above accurately reflects all work, treatment, procedures, and medical decision making performed by me. Departure Information Dispostion Home / Self-Care Prescriptions Hydroxyzine Pamoate (VISTARIL) 25 Mg Cap 1 CAP PO BID for Anxiety/Agitation for 30 Days, #30 CAP 1 Refill Prov: Nick Hernandez, DO 09/19/17 Referrals Vicki Belle MD (PCP) Forms HOME CARE DOCUMENTATION FORM, IMPORTANT VISIT INFORMATION Patient Instructions Anxiety Body Response, My [facility] Additional Instructions Please follow up with your primary care doctor with in the next 24 hours. Any worsening of your symptoms, please return to the ED immediately. This includes any fevers greater than 100.4, worsening pain, chest pain, shortness breath, persistent nausea, vomiting, unable to eat or drink, or any other concerning signs or symptoms from your standpoint. Any thoughts of when to harm herself or harm anyone else please return to ER immediately. No driving while taking Vistaril or 8 hours following taking this medication.
== END 2017-09-19 19:29 | disposition home or self-care (01) ==
LOC: EDBD 16:53 → C.EDA 16:54
DX: F41.9 Anxiety disorder, unspecified (principal); Z82.49 Family history of ischemic heart disease and other diseases of the circulatory system

== ENCOUNTER → 2017-09-27 | Outpatient (CLI) | payer OTHER ==
[~2017-09-27] MED LIST changes: -BCPILLS PO; -CHOL1000 PO; +HYDR25CA PO; -SULF800T23 PO
[2017-09-27 13:30] LABS: BLOOD UREA NITROGEN 14 mg/dl (7-18); CALCIUM 9.6 mg/dl (8.5-10.1); CARBON DIOXIDE 28 mmol/L (21-32); CREATININE 0.79 mg/dl (0.60-1.20); GLUCOSE 87 mg/dl (70-99); SODIUM 136 mmol/L (136-145)
== END | disposition home or self-care (01) ==
LOC: C.LABPBG 08:09
PROVIDERS: ATTEND Student in an Organized Health Care Education/Training Program
DX: E87.6 Hypokalemia (principal)

== ENCOUNTER → 2017-11-16 | Outpatient (CLI) | payer OTHER | END | disposition home or self-care (01) | LOC: C.LABSPEC 15:51 | PROVIDERS: ATTEND Physician Assistant | DX: N89.8 Other specified noninflammatory disorders of vagina (principal) ==

== ENCOUNTER 2019-03-17 23:54 | Inpatient (IN) ==
[2019-03-18] MEDS ORDERED: OXYTOCIN 30 UNITS/500 ML BAG IV PRN ×3 (02:49→13:54)
[2019-03-18] MEDS ORDERED: BUPIVACAINE 0.25% 30 ML VIAL ONE (02:50)
[2019-03-18] MEDS ORDERED: ePHEDrine sulfate 50 MG/ML AMP ONE (02:51)
[2019-03-18] MEDS ORDERED: fentaNYL citrate 100 MCG/2 ML VIAL ONE (02:51)
[2019-03-18] MEDS ORDERED: fentaNYL 2MCG/ML ROPIV 1.25MG/ML 100 ML BAG EPI ONE (02:51)
[2019-03-18] MEDS: LACTATED RINGER'S 1,000 ML IV PRN ×3 (02:58→11:24)
[2019-03-18 03:10] LABS: Hematocrit (blood only) 29.1 % (37-47); Hemoglobin 9.4 g/dL (12.0-16.0); Mean Corpuscular Hemoglobin 24.3 pg (25-34); Mean Corpuscular Volume 75.2 fL (80-100); Mean Platelet Volume 10.8 fL (7.4-10.4); Platelet Count 320 K/uL (130-400); RDW Coefficient of Variation 14.7 % (11.5-14.5); RDW Standard Deviation 40.5 fL (36.4-46.3); Red Blood Count 3.87 M/uL (4.2-5.4); White Blood Count 20.06 K/uL (4.8-10.8)
[2019-03-18] MEDS ORDERED: ePHEDrine sulfate 50 MG/ML AMP IV PRN (03:15)
[2019-03-18] MEDS ORDERED: ONDANSETRON INJ 2 MG/ML 2 ML VIAL IV PRN (03:15)
[2019-03-18] MEDS ORDERED: NALBUPHINE HCL INJ 10 MG/ML AMP IV PRN (03:15)
[2019-03-18] MEDS ORDERED: NALOXONE HCL 1 MG in SODIUM CHLORIDE 0.9% 1000ML 1,000 ML IV PRN (03:15)
[2019-03-18] MEDS ORDERED: DiphenhydrAMINE HCL 50 MG/ML VIAL IV PRN (03:15)
[2019-03-18] MEDS ORDERED: fentaNYL 2MCG/ML ROPIV 1.25MG/ML 100 ML BAG EPI PRN (03:15)
[2019-03-18] MEDS ORDERED: NALOXONE HCL 0.4 MG/1 ML VIAL/CARP IV PRN (03:15)
--- NOTE | 2019-03-18 03:18 | Anesthesiology Consultation ---
Date of Service March 18, 2019 Assessment & Plan (1) Encounter for pre-operative examination: Chart Review Chart Review: Patient NOT seen in Pre Admission Testing and Acceptable Risk for Labor Epidural Consults Requested none History Height/Weight Height: 5 ft 3 in Weight: 71.214 kg Allergies Allergy/AdvReac Type Severity Reaction Status Date / Time No Known Allergies Allergy Verified 03/11/19 14:54 Medications Home Medications Medication Instructions Recorded Confirmed Last Taken PNV cmb#95-ferrous fumarate-FA 1 tab PO DAILY 03/18/19 03/18/19 03/10/19 [] ondansetron HCl [Zofran] 4 mg PO BID PRN 03/18/19 03/18/19 03/10/19 Active Medications Generic Name Dose Route Start Last Admin Trade Name Freq PRN Reason Stop Dose Admin Lactated Ringer's 1,000 mls @ 125 mls/hr 03/18/19 02:49 03/18/19 02:58 Lr IV 03/20/19 02:48 999 mls/hr .Q8H PRN Administration L&D Protocol Protocol Past Medical History Medical History Abdominal pain (Acute) Ovarian cyst (Chronic) Dysuria (Acute) Pyelonephritis (Acute) PID (acute pelvic inflammatory disease) (Acute) Acute bronchitis (Acute) Hypokalemia Heart palpitations (Acute) Depo contraception (Chronic) Acute anxiety (Acute) Chest pain (Acute) Fatigue (Acute) Headache (Acute) History of varicella vaccination Exercise / Class Metabolic Activity II 4-5 Yardwork/Stairs/Walk up hill Past Family History Family History Grandmother Breast cancer Other Family history non-contributory Past Surgical History Surgical History History of dental surgery History of hip surgery Past Anesthesia History No Hx of Anesthesia Complications and No Family Hx of Anesthesia Complications History of PONV No Hx of PONV and No Hx of Motion Sickness Social History Smoking Status: Former smoker Hx Alcohol Use: No Hx Substance Use: Yes substance use type: former substance user, methamphetamine and other Last Used Substance Other:: 2016 Physical Exam Vital Signs Last Vital Signs Temp 36.7 C 03/18/19 00:21 Pulse 115 H 03/18/19 03:15 Resp 18 03/18/19 00:21 BP 139/81 03/18/19 03:15 Pulse Ox 100 03/18/19 03:11 Testing Laboratory Results 03/18/19 03:01
[2019-03-18 03:19] LABS: Mean Corpuscular Hgb Conc 32.3 g/dL (32-36)
--- NOTE | 2019-03-18 07:05 | Labor Progress Brief Note ---
Date of Service March 18, 2019 Subjective Reason For Note: Routine Evaluation Comfortable with Epidural Assessment & Plan (1) Normal labor and delivery: progressing well, continue exp mgmt. mec noted. Present on Admission?: Yes Physical Exam Genitourinary: Manual OB Exam: + cervical dilation 8 cm, + cervical effacement 90%, + station 0 and + amniotic fluid (Arom forebag thick mec) meconium OB Exam Monitor Tracing: + category I Results & Data Vital Signs (Past 12 Hours) Vital Signs Temp Pulse Resp BP Pulse Ox 03/18/19 07:01 125 H 100 03/18/19 06:56 96 H 100 03/18/19 06:51 104 H 100 03/18/19 06:47 95 H 113/64 03/18/19 06:46 98 H 99 03/18/19 06:41 95 H 100 03/18/19 06:36 84 98 03/18/19 06:32 80 110/58 L 03/18/19 06:31 84 99 03/18/19 06:26 82 98 03/18/19 06:21 92 H 99 03/18/19 06:20 16 03/18/19 06:17 86 106/57 L 03/18/19 06:16 90 99 03/18/19 06:11 88 99 03/18/19 06:06 90 100 03/18/19 06:02 86 106/56 L 03/18/19 06:01 87 99 03/18/19 05:56 83 100 03/18/19 05:51 102 H 99 03/18/19 05:49 91 H 108/51 L 03/18/19 05:46 103 H 100 03/18/19 05:41 99 H 100 03/18/19 05:36 108 H 100 03/18/19 05:32 98.4 F 112 H 18 127/80 03/18/19 05:31 107 H 100 03/18/19 05:26 115 H 99 03/18/19 05:21 106 H 100 03/18/19 05:17 100 H 107/56 L 03/18/19 05:16 93 H 100 03/18/19 05:11 92 H 100 03/18/19 05:06 94 H 18 100 03/18/19 05:02 85 109/60 03/18/19 05:01 86 100 03/18/19 04:56 88 100 08/27/19 04:51 89 100 03/18/19 04:48 90 109/61 03/18/19 04:46 91 H 100 03/18/19 04:41 101 H 100 03/18/19 04:40 109 H 16 90 03/18/19 04:36 101 H 100 03/18/19 04:32 104 H 130/83 03/18/19 04:31 100 H 100 03/18/19 04:26 109 H 100 03/18/19 04:21 110 H 88 L 03/18/19 04:17 107 H 18 120/83 03/18/19 04:16 117 H 100 03/18/19 04:11 99 H 100 03/18/19 04:06 103 H 100 03/18/19 04:02 110 H 136/73 03/18/19 04:01 104 H 100 03/18/19 03:58 120 H 16 138/79 03/18/19 03:56 100 H 100 03/18/19 03:51 103 H 134/70 100 03/18/19 03:49 104 H 129/71 03/18/19 03:47 107 H 134/76 03/18/19 03:46 110 H 16 100 03/18/19 03:45 109 H 129/74 03/18/19 03:43 106 H 124/70 03/18/19 03:41 112 H 121/63 100 03/18/19 03:39 109 H 129/68 03/18/19 03:37 107 H 126/69 03/18/19 03:36 111 H 100 03/18/19 03:35 107 H 123/74 03/18/19 03:33 100 H 132/82 03/18/19 03:31 107 H 123/60 100 03/18/19 03:29 98.6 F 104 H 18 141/86 H 03/18/19 03:26 109 H 100 03/18/19 03:21 114 H 100 03/18/19 03:16 108 H 100 03/18/19 03:15 115 H 139/81 03/18/19 03:11 116 H 100 03/18/19 03:06 101 H 100 03/18/19 00:21 98.1 F 18 03/18/19 00:16 96 H 128/80
[2019-03-18] MEDS ORDERED: ACETAMINOPHEN 325 MG TAB PO STA (08:17)
[2019-03-18] MEDS ORDERED: ACETAMINOPHEN 325 MG TAB ONE ×2 (08:29→08:33)
--- NOTE | 2019-03-18 10:07 | Labor Progress Brief Note ---
Date of Service March 18, 2019 Subjective Patient comfortable. Assessment & Plan (1) Normal labor and delivery: Will initiate pitocin. Fetus reassuring. Anticipate . Physical Exam Constitutional: WD/WN, vitals as above Psychiatric: A+Ox3, euthymic affect Genitourinary: cx--8/-1 swollen anterior lip toco--q4-6min efm--category one Results & Data Vital Signs (Past 12 Hours) Vital Signs Temp Pulse Resp BP Pulse Ox 03/18/19 10:02 93 H 129/99 03/18/19 10:01 105 H 100 03/18/19 09:58 36.8 C 18 03/18/19 09:56 96 H 100 03/18/19 09:51 97 H 100 03/18/19 09:47 99 H 131/69 03/18/19 09:46 96 H 100 03/18/19 09:41 105 H 100 03/18/19 09:36 102 H 100 03/18/19 09:32 105 H 132/68 03/18/19 09:31 111 H 100 03/18/19 09:26 84 98 03/18/19 09:21 82 100 03/18/19 09:17 85 124/71 03/18/19 09:16 82 100 03/18/19 09:11 84 99 03/18/19 09:06 92 H 99 03/18/19 09:02 94 H 127/73 03/18/19 09:01 89 99 03/18/19 08:56 100 H 99 03/18/19 08:51 94 H 100 03/18/19 08:48 89 127/73 03/18/19 08:46 94 H 99 03/18/19 08:41 94 H 99 03/18/19 08:36 120 H 100 03/18/19 08:32 99 H 112/59 L 03/18/19 08:31 107 H 100 03/18/19 08:26 98 H 100 03/18/19 08:21 106 H 100 03/18/19 08:17 95 H 117/66 03/18/19 08:16 103 H 100 03/18/19 08:11 91 H 100 03/18/19 08:06 92 H 100 03/18/19 08:03 86 115/59 L 03/18/19 08:01 83 100 03/18/19 07:56 98 H 100 03/18/19 07:51 119 H 100 03/18/19 07:47 107 H 129/74 03/18/19 07:46 107 H 99 03/18/19 07:41 106 H 100 03/18/19 07:36 116 H 100 03/18/19 07:32 102 H 125/75 03/18/19 07:31 103 H 100 03/18/19 07:26 104 H 100 03/18/19 07:21 107 H 100 03/18/19 07:16 105 H 100 03/18/19 07:11 112 H 100 03/18/19 07:06 36.7 C 106 H 18 100 03/18/19 07:02 101 H 130/78 03/18/19 07:01 125 H 100 03/18/19 06:56 96 H 100 03/18/19 06:51 104 H 100 03/18/19 06:47 95 H 113/64 03/18/19 06:46 98 H 99 03/18/19 06:41 95 H 100 03/18/19 06:36 84 98 03/18/19 06:32 80 110/58 L 03/18/19 06:31 84 99 03/18/19 06:26 82 98 03/18/19 06:21 92 H 99 03/18/19 06:20 16 03/18/19 06:17 86 106/57 L 03/18/19 06:16 90 99 03/18/19 06:11 88 99 03/18/19 06:06 90 100 03/18/19 06:02 86 106/56 L 03/18/19 06:01 87 99 03/18/19 05:56 83 100 03/18/19 05:51 102 H 99 03/18/19 05:49 91 H 108/51 L 03/18/19 05:46 103 H 100 03/18/19 05:41 99 H 100 03/18/19 05:36 108 H 100 03/18/19 05:32 36.9 C 112 H 18 127/80 03/18/19 05:31 107 H 100 03/18/19 05:26 115 H 99 03/18/19 05:21 106 H 100 03/18/19 05:17 100 H 107/56 L 03/18/19 05:16 93 H 100 03/18/19 05:11 92 H 100 03/18/19 05:06 94 H 18 100 03/18/19 05:02 85 109/60 03/18/19 05:01 86 100 03/18/19 04:56 88 100 03/18/19 04:51 89 100 03/18/19 04:48 90 109/61 03/18/19 04:46 91 H 100 03/18/19 04:41 101 H 100 03/18/19 04:40 109 H 16 90 03/18/19 04:36 101 H 100 03/18/19 04:32 104 H 130/83 03/18/19 04:31 100 H 100 03/18/19 04:26 109 H 100 03/18/19 04:21 110 H 88 L 03/18/19 04:17 107 H 18 120/83 03/18/19 04:16 117 H 100 03/18/19 04:11 99 H 100 03/18/19 04:06 103 H 100 03/18/19 04:02 110 H 136/73 03/18/19 04:01 104 H 100 03/18/19 03:58 120 H 16 138/79 03/18/19 03:56 100 H 100 03/18/19 03:51 103 H 134/70 100 03/18/19 03:49 104 H 129/71 03/18/19 03:47 107 H 134/76 03/18/19 03:46 110 H 16 100 03/18/19 03:45 109 H 129/74 03/18/19 03:43 106 H 124/70 03/18/19 03:41 112 H 121/63 100 03/18/19 03:39 109 H 129/68 03/18/19 03:37 107 H 126/69 03/18/19 03:36 111 H 100 03/18/19 03:35 107 H 123/74 03/18/19 03:33 100 H 132/82 03/18/19 03:31 107 H 123/60 100 03/18/19 03:29 37.0 C 104 H 18 141/86 H 03/18/19 03:26 109 H 100 03/18/19 03:21 114 H 100 03/18/19 03:16 108 H 100 03/18/19 03:15 115 H 139/81 03/18/19 03:11 116 H 100 03/18/19 03:06 101 H 100 03/18/19 00:21 36.7 C 18 03/18/19 00:16 96 H 128/80
--- NOTE | 2019-03-18 12:15 | Labor Progress Brief Note ---
Date of Service March 18, 2019 Subjective feeling some pressure Assessment & Plan (1) Normal labor and delivery: begin second stage. anticipate . Physical Exam Constitutional: WD/WN, vitals as above Psychiatric: A+Ox3, euthymic affect Genitourinary: cx--c/c/+2 toco--q2-3min, pit at 8 efm--130s with mod variability, small accels, rare variable Results & Data Vital Signs (Past 12 Hours) Vital Signs Temp Pulse Resp BP Pulse Ox 03/18/19 12:11 124 H 100 03/18/19 12:06 116 H 100 03/18/19 12:02 36.7 C 88 18 114/63 03/18/19 12:01 90 100 03/18/19 11:56 80 100 03/18/19 11:51 100 H 100 03/18/19 11:47 93 H 114/64 03/18/19 11:46 96 H 99 03/18/19 11:41 98 H 100 03/18/19 11:36 95 H 100 03/18/19 11:32 103 H 125/86 03/18/19 11:31 95 H 100 03/18/19 11:26 100 H 100 03/18/19 11:21 89 100 03/18/19 11:18 90 113/68 03/18/19 11:16 100 H 100 03/18/19 11:11 93 H 100 03/18/19 11:06 105 H 100 03/18/19 11:03 87 122/58 L 03/18/19 11:01 101 H 100 03/18/19 10:57 37.0 C 18 03/18/19 10:56 86 100 03/18/19 10:51 83 100 03/18/19 10:47 112 H 135/83 03/18/19 10:46 102 H 100 03/18/19 10:41 93 H 100 03/18/19 10:36 98 H 100 03/18/19 10:32 90 128/75 03/18/19 10:31 91 H 100 03/18/19 10:26 106 H 100 03/18/19 10:21 98 H 100 03/18/19 10:17 98 H 128/90 03/18/19 10:16 102 H 100 03/18/19 10:11 102 H 100 03/18/19 10:07 92 H 94 03/18/19 10:06 89 100 03/18/19 10:02 93 H 129/99 03/18/19 10:01 105 H 100 03/18/19 09:58 36.8 C 18 03/18/19 09:56 96 H 100 03/18/19 09:51 97 H 100 03/18/19 09:47 99 H 131/69 03/18/19 09:46 96 H 100 03/18/19 09:41 105 H 100 03/18/19 09:36 102 H 100 03/18/19 09:32 105 H 132/68 03/18/19 09:31 111 H 100 03/18/19 09:26 84 98 03/18/19 09:21 82 100 03/18/19 09:17 85 124/71 03/18/19 09:16 82 100 03/18/19 09:11 84 99 03/18/19 09:06 92 H 99 03/18/19 09:02 94 H 127/73 03/18/19 09:01 89 99 03/18/19 08:56 100 H 99 03/18/19 08:51 94 H 100 03/18/19 08:48 89 127/73 03/18/19 08:46 94 H 99 03/18/19 08:41 94 H 99 03/18/19 08:36 120 H 100 03/18/19 08:32 99 H 112/59 L 03/18/19 08:31 107 H 100 03/18/19 08:26 98 H 100 03/18/19 08:21 106 H 100 03/18/19 08:17 95 H 117/66 03/18/19 08:16 103 H 100 03/18/19 08:11 91 H 100 03/18/19 08:06 92 H 100 03/18/19 08:03 86 115/59 L 03/18/19 08:01 83 100 03/18/19 07:56 98 H 100 03/18/19 07:51 119 H 100 03/18/19 07:47 107 H 129/74 03/18/19 07:46 107 H 99 03/18/19 07:41 106 H 100 03/18/19 07:36 116 H 100 03/18/19 07:32 102 H 125/75 03/18/19 07:31 103 H 100 03/18/19 07:26 104 H 100 03/18/19 07:21 107 H 100 03/18/19 07:16 105 H 100 03/18/19 07:11 112 H 100 03/18/19 07:06 36.7 C 106 H 18 100 03/18/19 07:02 101 H 130/78 03/18/19 07:01 125 H 100 03/18/19 06:56 96 H 100 03/18/19 06:51 104 H 100 03/18/19 06:47 95 H 113/64 03/18/19 06:46 98 H 99 03/18/19 06:41 95 H 100 03/18/19 06:36 84 98 03/18/19 06:32 80 110/58 L 03/18/19 06:31 84 99 03/18/19 06:26 82 98 03/18/19 06:21 92 H 99 03/18/19 06:20 16 03/18/19 06:17 86 106/57 L 03/18/19 06:16 90 99 03/18/19 06:11 88 99 03/18/19 06:06 90 100 03/18/19 06:02 86 106/56 L 03/18/19 06:01 87 99 03/18/19 05:56 83 100 03/18/19 05:51 102 H 99 03/18/19 05:49 91 H 108/51 L 03/18/19 05:46 103 H 100 03/18/19 05:41 99 H 100 03/18/19 05:36 108 H 100 03/18/19 05:32 36.9 C 112 H 18 127/80 03/18/19 05:31 107 H 100 03/18/19 05:26 115 H 99 03/18/19 05:21 106 H 100 03/18/19 05:17 100 H 107/56 L 03/18/19 05:16 93 H 100 03/18/19 05:11 92 H 100 03/18/19 05:06 94 H 18 100 03/18/19 05:02 85 109/60 03/18/19 05:01 86 100 03/18/19 04:56 88 100 03/18/19 04:51 89 100 03/18/19 04:48 90 109/61 03/18/19 04:46 91 H 100 03/18/19 04:41 101 H 100 03/18/19 04:40 109 H 16 90 03/18/19 04:36 101 H 100 03/18/19 04:32 104 H 130/83 03/18/19 04:31 100 H 100 03/18/19 04:26 109 H 100 03/18/19 04:21 110 H 88 L 03/18/19 04:17 107 H 18 120/83 03/18/19 04:16 117 H 100 03/18/19 04:11 99 H 100 03/18/19 04:06 103 H 100 03/18/19 04:02 110 H 136/73 03/18/19 04:01 104 H 100 03/18/19 03:58 120 H 16 138/79 03/18/19 03:56 100 H 100 03/18/19 03:51 103 H 134/70 100 03/18/19 03:49 104 H 129/71 03/18/19 03:47 107 H 134/76 03/18/19 03:46 110 H 16 100 03/18/19 03:45 109 H 129/74 03/18/19 03:43 106 H 124/70 03/18/19 03:41 112 H 121/63 100 03/18/19 03:39 109 H 129/68 03/18/19 03:37 107 H 126/69 03/18/19 03:36 111 H 100 03/18/19 03:35 107 H 123/74 03/18/19 03:33 100 H 132/82 03/18/19 03:31 107 H 123/60 100 03/18/19 03:29 37.0 C 104 H 18 141/86 H 03/18/19 03:26 109 H 100 03/18/19 03:21 114 H 100 03/18/19 03:16 108 H 100 03/18/19 03:15 115 H 139/81 03/18/19 03:11 116 H 100 03/18/19 03:06 101 H 100 03/18/19 00:21 36.7 C 18 03/18/19 00:16 96 H 128/80
[2019-03-18] MEDS ORDERED: OXYCODONE/ACETAMINOPHEN 5mg/325mg TAB PO PRN (13:00)
[2019-03-18] MEDS ORDERED: ACETAMINOPHEN 325 MG TAB PO PRN (13:00)
--- NOTE | 2019-03-18 13:06 | Delivery Summary ---
Vaginal Delivery Summary Date of Service March 18, 2019 Vaginal Delivery Summary Pre-operative Diagnosis: at 39 weeks labor Post-operative Diagnosis: Same + thin meconium +terminal bradycardia Procedure: epidural arom vavd left labial laceration with repair EBL: 400cc Anesthesia: epidural Procedure: The patient pushed with good effort to +4 station. Fetus with bradycardia to 90s with pushing at that point that was slow to recover after two further contractions. Advised Vacuum assist at outlet for delivery. Patient gave verbal consent. Over one contraction, the vacuum was applied and with one pull and no pop off , she delivered a viable male in GERMAN position. The rest of the infant was then delivered without difficulty. The baby was vigorous. The nose and mouth were again bulb suctioned and the infant was placed in the maternal abdomen for drying and attention. Cord was clamped and cut at one minute of life. Cord blood and gases were obtained. Placenta delivered by manual extraction after avulusion of the cord. The uterus was explored and no apparent POCs remained. Cervix/sulci/rectum and perineum were intact. A left labial laceration was repaired in the normal standard fashion. Hemostasis obtained with dilute pitocin and fundal massage. Apgars were pending. Mother and baby doing well at the end of the delivery.
--- NOTE | 2019-03-18 13:25 | Anesthesia Procedure Note ---
Date of Service March 18, 2019 Anesthesia Post Epidural Note Vital Signs Vital Signs: Temp Pulse Resp BP Pulse Ox 36.7 C 102 H 18 130/67 100 03/18/19 12:02 03/18/19 13:17 03/18/19 12:02 03/18/19 13:17 03/18/19 12:56 Notes Mental Status: alert / awake / arousable Nausea / Vomiting: adequately controlled Pain: adequately controlled Airway Patency, RR, SpO2: stable & adequate BP & HR: stable & adequate Hydration State: stable & adequate Neuraxial Anesthesia: was administered and sensory block is resolving Anesthetic Complications: no major complications apparent and Pt Satisfied with anesthetic care Epidural: Removed without complications and With tip intact
[2019-03-18] MEDS ORDERED: SUPERCREAM 0.870% 15 GM JAR EXT PRN (13:54)
[2019-03-18] MEDS ORDERED: DIPHTHERIA/TETANUS/PERTUSSIS 0.5 ML SYR/VIAL IM ONE (13:54)
[2019-03-18] MEDS ORDERED: BENZOCAINE 20% AER SPR 82.5 GM CAN EXT PRN (13:54)
[2019-03-18] MEDS ORDERED: HYDROCORTISONE ACETATE 25 MG SUPP PR PRN (13:54)
[2019-03-18] MEDS ORDERED: BISACODYL 10 MG SUPP PR PRN (13:54)
[2019-03-18 14:13] LABS: Base Excess Cord Venous Blood -4.6 mEq/L (-7.7-1.9); Cord Venous Blood HCO3 21 mmol/L (18.4-26.8); Cord Venous Blood PCO2 40 mmHg (30.4-57.2); Cord Venous Blood PO2 25 mmHg (14.1-43.3); Cord Venous Blood pH 7.33 (7.20-7.44)
[2019-03-18 14:17] LABS: Base Excess Cord Arterial Bld -8.4 mEq/L (-9-1.8); CO2 Cord Arterial Blood 61 mmHg (39.1-73.5); HCO3 Cord Arterial Blood 22 mmol/L (19.7-28.5); pH Cord Arterial Blood 7.17 (7.1-7.38)
[2019-03-18 14:21] LABS: O2 Saturation Cord Venous Bld < 60.0 % (<68); Oxygen Sat Cord Arterial Blood < 60.0 % (<60)
[2019-03-18] MEDS: DOCUSATE SODIUM 100 MG CAP PO SCH (20:48)
[2019-03-18] MEDS: IBUPROFEN 600 MG TAB PO PRN (20:49)
--- NOTE | 2019-03-19 07:46 | Obstetrical Progress Note ---
Date of Service <Lamin Mcclain DO - Last Filed: 03/19/19 07:46> March 19, 2019 Assessment & Plan <DO Klever Lopes Last Filed: 03/19/19 07:46> (1) : PPD#1 - Vital Signs reviewed and WNL. (Tmax at 37.3) - Blood Type: B+, GBS- - Pt is doing well clinically. - Encourage Ambulation, Monitor and Control pain with Motrin PRN, Resume regular diet, Monitor Lochia Patient feeding with formula -Consdier D/C tomorrow Day #:: 1 Subjective <Lamin Mcclain DO - Last Filed: 03/19/19 07:46> Ambulation: ambulating normally Voiding: no voiding problems Passing Gas:: Yes Diet Tolerance:: regular diet Lochia:: Small Feeding Type:: bottle feeding ([place]) Current Pain Level(1-10): 2 (Improves with analgesics) Patient is a 23 PPD#1 after vacuum assisted vaginal delivery. Patient states that she is doing well and has no complaints at this time. Constitutional: no fever and no chills Respiratory: no cough, no dyspnea and no wheezing Cardiovascular: + edema; no chest pain, no dyspnea, no palpitations and no calf pain Breast: no breast pain Gastrointestinal: no abdominal pain, no nausea and no vomiting Genitourinary (female): no dysuria Neurologic: + headache(s) Physical Exam <DO Klever Lopes Last Filed: 03/19/19 07:46> Constitutional WD/WN, vitals as above Respiratory normal respiratory effort, lungs clear to auscultation Cardiovascular Rate/Rhythm: regular rate and regular rhythm Heart Sounds: normal S1 and normal S2; no click, no gallop and no murmur Extremities: + edema (+1); no calf tenderness Gastrointestinal (Abdomen) Inspection/Auscultation: abdomen normal to inspection and normal bowel sounds Percussion/Palpation: abdomen soft; abdomen nontender Genitourinary OB Exam Abdomen: + fundal height Fundus: + firm and + relation to umbilicus (2cm below); not tender and not boggy Results & Data <DO Klever Lopes Last Filed: 03/19/19 07:46> Vital Signs (Past 12 Hours) Vital Signs Temp Pulse Resp BP Pulse Ox 03/19/19 03:10 36.5 C 93 H 16 130/80 98 03/18/19 23:20 36.8 C 88 16 127/80 98 Medications Administered Current Inpatient Medications Acetaminophen (Tylenol) 650 mg PO Q6H PRN PRN Reason: Pain/BACA/Fever Stop: 04/17/19 12:59 Last Admin: 03/18/19 14:59 Dose: 650 mg Documented by: Benzocaine (Dermoplast Pain Relieving Movico) 1 appln EXT PRN PRN PRN Reason: Perineal Discomfort Stop: 04/17/19 13:53 Last Admin: 03/18/19 16:05 Dose: 1 appln Documented by: Bisacodyl (Dulcolax) 5 mg PO 1999 [facility] Stop: 03/19/19 20:01 Bisacodyl (Dulcolax) 10 mg [place] DAILY PRN PRN Reason: No BM on 2nd post- day Stop: 04/17/19 13:53 Cocaine HCl (Supercream 0.870%) 1 gm EXT BID PRN PRN Reason: Hemorrhoidal Inflammation Stop: 04/01/19 13:53 Docusate Sodium (Colace) 100 mg PO DAILY@08,21 [facility] Stop: 04/17/19 20:59 Last Admin: 03/18/19 20:48 Dose: 100 mg Documented by: Hydrocortisone (Anusol Hc) 25 mg [place] BID PRN PRN Reason: Hemorrhoidal Inflammation Stop: 04/17/19 13:53 Oxytocin (Pitocin) 30 units in 500 mls @ 333.333 mls/hr IV .Q1H30M PRN; Protocol PRN Reason: Bleeding Control Stop: 04/17/19 13:53 Ibuprofen (Motrin) 600 mg PO Q4H PRN PRN Reason: Pain/BACA/Cramping/Fever Stop: 04/17/19 12:59 Last Admin: 03/18/19 20:49 Dose: 600 mg Documented by: Oxycodone/Acetaminophen (Percocet 5mg/325mg) 1 tab PO Q4H PRN PRN Reason: Pain not relieved by... Stop: 04/01/19 12:59 Prenat Multivit/[place]/Iron/Folic Ac ( Vitamin) 1 tab PO DAILY@08 [facility] Stop: 09/27/19 07:59 <Carito Burdick MD, FACOG - Last Filed: 03/19/19 07:48> Co-Signing Physician Notes Resident Physician Supervision Note: I interviewed and examined the patient. Discussed with Dr. Mcclain and agree with findings and plan as documented in the note. Any exceptions or clarifications are listed here: Doing well. Routine PP care. Documented By: Carito Burdick MD, FACOG Resident Activity Tracking <Lmain Mcclain DO - Last Filed: 03/19/19 07:46> Resident Involvement: Resident Care Provided Care Provided: OB Delivery
[2019-03-19] MEDS: DOCUSATE SODIUM 100 MG CAP PO SCH ×2 (07:53→19:55)
[2019-03-19] MEDS: PRENATAL VITAMIN 1 TAB PO SCH (07:53)
[2019-03-19 08:52] LABS: Hematocrit (blood only) 25.3 % (37-47); Hemoglobin 8.1 g/dL (12.0-16.0)
[2019-03-19] MEDS: IBUPROFEN 600 MG TAB PO PRN (15:01)
[2019-03-19] MEDS ORDERED: BISACODYL 5 MG TABEC PO SCH (20:00)
[2019-03-20] MEDS: IBUPROFEN 600 MG TAB PO PRN ×2 (00:33→09:32)
--- NOTE | 2019-03-20 06:48 | Obstetrical Progress Note ---
Date of Service <Lamin Mcclain DO - Last Filed: 03/20/19 07:03> March 20, 2019 Assessment & Plan <Lamin Mcclain DO - Last Filed: 03/20/19 07:03> (1) : PPD#1 - Vital Signs reviewed and WNL. (Tmax at 37.1) - Blood Type: B+, GBS- - Pt is doing well clinically. - Encourage Ambulation, Monitor and Control pain with Motrin PRN, continue regular diet, Monitor Lochia Patient feeding with formula - Routine PP care - Patient counseled on discharge. Day #:: 2 Subjective <Lamin Mcclain DO - Last Filed: 03/20/19 07:03> Ambulation: ambulating normally Voiding: no voiding problems Passing Gas:: Yes Diet Tolerance:: regular diet Lochia:: Small Feeding Type:: bottle feeding Current Pain Level(1-10): 0 Patient is a 23 PPD#2. Patient states she is doing well today and that she is not having any pain. She has no complaints at this time. Constitutional: no fever and no chills Respiratory: no cough, no dyspnea and no wheezing Cardiovascular: + edema; no chest pain, no dyspnea, no palpitations and no calf pain Breast: no breast pain Gastrointestinal: no abdominal pain, no nausea and no vomiting Genitourinary (female): no dysuria, no urinary frequency and no urinary hesitancy Neurologic: no headache(s) Physical Exam <Lamin Mcclain DO - Last Filed: 03/20/19 07:03> Constitutional WD/WN, vitals as above Respiratory normal respiratory effort, lungs clear to auscultation Cardiovascular Rate/Rhythm: regular rate and regular rhythm Heart Sounds: normal S1 and normal S2; no click, no gallop and no murmur Extremities: + edema (+1); no calf tenderness Gastrointestinal (Abdomen) Inspection/Auscultation: abdomen normal to inspection and normal bowel sounds Percussion/Palpation: abdomen soft; abdomen nontender Genitourinary OB Exam Abdomen: + fundal height Fundus: + firm and + relation to umbilicus (4cm below); not tender and not boggy Results & Data <DO Klever Lopes Last Filed: 03/20/19 07:03> Vital Signs (Past 12 Hours) Vital Signs Temp Pulse Resp BP 08/29/19 00:35 37.1 C 87 18 118/82 <Marylu Harris MD, FACOG - Last Filed: 03/20/19 07:13> Co-Signing Physician Notes Resident Physician Supervision Note: I was present with Dr. Mcclain during the history and exam. I discussed the case with the resident and agree with the findings and plan as documented in the note. Any exceptions or clarifications are listed here: [None] Documented By: Marylu Harris MD, FACOG Resident Activity Tracking <Lamin Mcclain DO - Last Filed: 03/20/19 07:03> Resident Involvement: Resident Care Provided Care Provided: OB Delivery
[2019-03-20] MEDS: DOCUSATE SODIUM 100 MG CAP PO SCH (09:30)
[2019-03-20] MEDS: PRENATAL VITAMIN 1 TAB PO SCH (09:30)
--- NOTE | 2019-03-25 08:02 | Discharge Summary ---
PREOPERATIVE DIAGNOSES: 1. at 39 weeks. 2. Labor. POSTOPERATIVE DIAGNOSES: 1. at 39 weeks. 2. Labor. 3. Thin meconium. 4. Terminal bradycardia. PROCEDURES: 1. Epidural. 2. Amniotomy. 3. Vacuum-assisted vaginal delivery for terminal bradycardia. 4. Left labial laceration with repair. DESCRIPTION OF PROCEDURE: The patient presented to labor and delivery in labor. She progressed quickly. She got an epidural anesthetic and an amniotomy for thin meconium and progressed to pushing. She pushed with good effort to station of +4, but then the fetus had a bradycardia to the 90s with pushing that was slow to recover after 2 further contractions. I advised vacuum to assist for outlet delivery and verbal consent was obtained. Over 1 contraction, the vacuum was applied and with 1 pull and no pop-off, she delivered a viable infant in GERMAN position. The resting infant was then delivered without difficulty. The baby was vigorous. The nose and mouth were bulb suctioned. The was placed on maternal abdomen for drying and attention. Cord was clamped at 1 minute of life. Placenta was removed by manual extraction after avulsion of the cord. The uterus was explored. No apparent products of conception remained. Cervix, sulci, rectum, and perineum were intact. A left labial laceration was repaired. Mother and baby are doing well at the end of the delivery. The patient's course was uncomplicated. She tolerated a regular diet, ambulated without difficulty, voided without difficulty, had her pain well controlled. She was discharged home on postoperative day 2.
== END 2019-03-20 14:38 | disposition home or self-care (01) | DRG 807 ==
LOC: OPB 23:54 → 4S1 23:58 → 4S2 03-18 15:30

== ENCOUNTER 2023-11-01 08:08 | Inpatient (IN) ==
[2023-11-01] MEDS ORDERED: LIDOCAINE 1% LOCAL 20 ML VIAL INFIL PRN (08:11)
[2023-11-01] MEDS ORDERED: OXYTOCIN 30 UNITS/NSS 30 UNITS/500 ML BAG IV PRN ×2 (08:11→18:15)
[2023-11-01 08:56] LABS: Hematocrit (blood only) 32.3 % (37.0-47.0); Mean Corpuscular Hemoglobin 25.6 pg (25.0-34.0); Mean Corpuscular Volume 82.6 fL (80.0-100.0); Platelet Count 287 K/uL (130-400); RDW Coefficient of Variation 14.2 % (11.5-14.5); RDW Standard Deviation 41.8 fL (36.4-46.3); Red Blood Count 3.91 M/uL (4.20-5.40); White Blood Count 10.53 K/ul (4.8-10.8)
--- NOTE | 2023-11-01 08:57 | History & Physical Report ---
Date of Service November 01, 2023 Assessment & Plan (1) Encounter for induction of labor: Plan 27 y/o female currently at 40w 4d with an GUANAKITO 10/28/23 as determined by US, who is here for IOL. Irving bulb Pitocin Epidural prn AROM as indicated Monitor heart tracing, category 1 Admission and Anticipated Discharge Date Admission Date: November 01, 2023 History of Present Illness Primary Care Provider: Radha Carrera, 27 y/o female currently at 40w 4d with an GUANAKITO 10/28/23 as determined by US, who is here for IOL. Rubella Equivocal *MMR PP GDM w/16wk glucola Had regular appointments with OB denies Contractions + movement denies fluid loss denies Vaginal bleeding External FHT and external uterine monitors used: Category 1 tracing OB Labs: Blood Type B Positive 03/28/23 Antibody Screen NEGATIVE 03/28/23 Hemoglobin 12.1 g/dl (12.0-16.0) 03/28/23 Hematocrit 36.5 % (37.0-47.0) L 03/28/23 Mean Corpuscular Volume 87.5 fL (80.0-100.0) 03/28/23 Platelet Count 271 K/uL (130-400) 03/28/23 Rubella IgG Antibody Equivocal (Immune) L 03/28/23 Rapid Plasma Reagin Nonreactive (Nonreactive) 03/28/23 Hepatitis B Surface Antigen Neg (Neg) 08/07/18 Hepatitis B Surface Antigen. NON-REACTIVE (NON-REACTIVE) 03/28/23 Hepatitis C Antibody (EIA) NON-REACTIVE (NON-REACTIVE) 03/28/23 HIV (1&2) Ab and P24 Ag, 4th Gener Neg (Neg) 08/07/18 HIV (1&2) Ag and Ab Confirmation NON-REACTIVE (NON-REACTIVE) 03/28/23 Glucose 1 Hour 50 gm Load 151 mg/dl (70-130) H 05/16/23 Maternal Serum Alpha Fetoprotein 30.0 NG/ML 10/07/18 OB Optional Labs: Chlamydia trachomatis RNA Not Detected (NotDetected) 03/28/23 Neisseria gonorrhoeae RNA Not Detected (NotDetected) 03/28/23 Thyroid Stimulating Hormone (TSH) 4.375 uIu/ml (0.300-4.500) 02/13/23 Alpha Fetoprotein Triple Screen SEE NOTE 10/07/18 Labs Reviewed: CF negative in prior , HK afp neg--ak low risk panorama--[facility] Allergies Allergy/AdvReac Type Severity Reaction Status Date / Time No Known Allergies Allergy Verified 10/31/23 11:17 Home Medications Medication Instructions Recorded Confirmed Type acetone (urine) test (Ketone Urine #50 ea 06/06/23 10/31/23 Rx Test strips) blood sugar diagnostic (OneTouch #150 ea 06/06/23 10/31/23 Rx Verio test strips) blood-glucose meter (OneTouch #1 ea 06/06/23 10/31/23 Rx Verio Reflect Meter) lancets 33 gauge (OneTouch Delica #150 ea 06/06/23 10/31/23 Rx Plus Lancet) vitamin-ferrous sulfate 27 tab PO DAILY 10/31/23 10/31/23 History 27 mg iron-folic acid 0.8 mg tablet Patient History Medical History History of Tgoz-Zhzlw-Qbawcnu disease Migraine Ovarian cyst PCOS (polycystic ovarian syndrome) Surgical History History of dental surgery 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 Family History Grandmother Breast cancer Mother Osteoarthritis Fibromyalgia Spinal stenosis Other Family history non-contributory Denies family history of Ovarian cancer Prostate cancer Myocardial infarction Colorectal cancer Uterine cancer Social History Smoking Status: Current every day smoker Tobacco Type: E-cigarettes / Vaping packs per day: 0.5; Second Hand Exposure: No; Do You Dip or Chew Tobacco: No; Tobacco Cessation Education Requested by Patient: No Hx Alcohol Use: No Hx Substance Use: No Preferred Language: Italian Communication Ability: Effective Visual Impairment: No Limitations Hearing Ability: Normal Truck Caterer Required: No Beliefs That Will Affect Care: None marital status: Single marital status details: brianna (22) [phone] Current Living Situation: Significant Other and Homeless Current Living Situation Comment: [place]- 4y/o son current occupational status: employed 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 Date GA wks Lbr Lgth wt Sex Type del Anes Place Del Prov ? Comment 03/18/19 39 8lb 11.9oz M Ep idural [facility] Hard[facility] [employer]MENT [employer]TER History Last pap 05/09/19 with Hardyk, LGSIL Review of Systems denies chest pain or SOB denies fever/chills denies BACA/changes in vision denies dysuria denies LE pain Physical Exam Physical Exam: General: Alert and oriented. No acute distress Cardiac: Regular rate and rhythm, no murmurs appreciated Respiratory: Lungs clear to auscultation bilaterally, No increased work of breat tiffanie Abdominal: Soft, non-tender, non-distended. Bowel sounds present. Gravid uterus. Extremities: No lower extremity edema, calves non-tender bilaterally FHT: Category 1, baseline rate 150, moderate variability, infrequent contractions Pelvic: 1cm/60%/-1 station per attending Genitourinary: OB Exam Abdomen: + vertex and + estimated weight (8-9 pounds); no regular contractions and no irregular contractions Manual OB Exam: + cervical dilation 1 cm, + cervical effacement 60% and + station -1 OB Exam Monitor Tracing: + external FHT monitor used, + external uterine monitor used, + category I and + normal FHT variability cervical balloon placed under direct visualization. 40 cc sterile water instilled into the balloon. the catheter was then placed on tension and secured to her left thigh. she tolerated the procedure well. Supervising Physician Co-Signing Physician Notes Resident Physician Supervision Note: I interviewed and examined the patient. Discussed with Dr. Melgar and agree with findings and plan as documented in the note. Any exceptions or clarifications are listed here: [None] Documented By: Marylu Harris MD, FACOG Resident Activity Tracking Resident Involvement: Resident Care Provided Care Provided: OB Delivery
[2023-11-01] MEDS: LACTATED RINGER'S 1,000 ML IV PRN (09:52)
[2023-11-01] MEDS: OXYTOCIN 30 UNITS/NSS 30 UNITS/500 ML BAG IV PRN (09:52)
[2023-11-01] MEDS ORDERED: fentaNYL citrate PF 100 MCG/2 ML VIAL EPI PRN (13:03)
[2023-11-01] MEDS ORDERED: LIDOCAINE 2% MPF LOCAL 5 ML VIAL EPI PRN (13:03)
[2023-11-01] MEDS ORDERED: ROPIVACAINE 0.5% PF 5 MG/ML 20 ML VIAL EPI PRN (13:03)
[2023-11-01] MEDS ORDERED: fentANYL 2 MCG/ML BUPIVacaine 0.125%-NSS 100ML BAG EPI PRN (13:03)
[2023-11-01] MEDS ORDERED: ONDANSETRON INJ 2 MG/ML 2 ML VIAL IV PRN (13:03)
[2023-11-01] MEDS ORDERED: BUPIVACAINE 0.25% PF 30 ML VIAL EPI PRN (13:03)
[2023-11-01] MEDS ORDERED: ePHEDrine sulfate 50 MG/ML AMP IV PRN (13:03)
[2023-11-01] MEDS ORDERED: SODIUM CHLORIDE 0.9% PF INJ 10 ML VIAL EPI PRN (13:03)
[2023-11-01] MEDS ORDERED: NALOXONE HCL 0.4 MG/1 ML VIAL/CARP IV PRN (13:03)
[2023-11-01] MEDS ORDERED: NALBUPHINE HCL 5 MG in SYRINGE 0 ML IV PRN (13:03)
[2023-11-01] MEDS ORDERED: diphenhydrAMINE 50 MG/ML VIAL IV PRN (13:03)
[2023-11-01] MEDS ORDERED: NALOXONE HCL 1 MG in SODIUM CHLORIDE 0.9% 1,000 ML IV PRN (13:03)
--- NOTE | 2023-11-01 13:03 | Anesthesiology Consultation ---
Date of Service November 01, 2023 Assessment & Plan ASA ASA2 Proposed Anesthesia Anesthesia Type: Labor Epidural Risk / Benefits Reviewed With: PT / POA / Parent / Guardian, Accepts Plan and Informed Consent Obtained History Height/Weight Height: 5 ft 3 in Weight: 67.585 kg Allergies Allergy/AdvReac Type Severity Reaction Status Date / Time No Known Allergies Allergy Verified 10/31/23 11:17 Medications Home Medications Medication Instructions Recorded Confirmed Last Taken acetone (urine) test (Ketone Urine #50 ea 06/06/23 10/31/23 Unknown Test strips) blood sugar diagnostic (OneTouch #150 ea 06/06/23 10/31/23 Unknown Verio test strips) blood-glucose meter (OneTouch #1 ea 06/06/23 10/31/23 Unknown Verio Reflect Meter) lancets 33 gauge (OneTouch Delica #150 ea 06/06/23 10/31/23 Unknown Plus Lancet) vitamin-ferrous sulfate 27 tab PO DAILY 10/31/23 11/01/23 11/01/23 06:00 27 mg iron-folic acid 0.8 mg tablet Active Medications Generic Name Dose Route Start Last Admin Trade Name Freq PRN Reason Stop Dose Admin Oxytocin 30 units in 500 mls @ 12 mls/hr 11/01/23 08:11 11/01/23 12:30 Pitocin 30 Units/Nss IV 11/03/23 08:10 0.72 units/hr .Q24H PRN 12 mls/hr Labor Induction/Augmentation Titration Protocol 0.72 UNITS/HR Lactated Ringer's 1,000 mls @ 125 mls/hr 11/01/23 08:11 11/01/23 13:34 Lr IV 11/03/23 08:10 999 mls/hr .Q8H PRN Administration L&D Protocol Protocol Past Medical History Medical History PCOS (polycystic ovarian syndrome) Migraine History of Vswp-Iosmo-Bmhlehc disease Ovarian cyst Exercise / Class Metabolic Activity II 4-5 Yardwork/Stairs/Walk up hill Past Family History Family History Grandmother Breast cancer Mother Osteoarthritis Fibromyalgia Spinal stenosis Other Family history non-contributory Denies family history of Ovarian cancer Prostate cancer Myocardial infarction Colorectal cancer Uterine cancer Past Surgical History Surgical History History of dental surgery 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 Past Anesthesia History No Hx of Anesthesia Complications and No Family Hx of Anesthesia Complications History of PONV No Hx of PONV and No Hx of Motion Sickness Social History Smoking Status: Current every day smoker Do You Dip or Chew Tobacco: No Hx Alcohol Use: No Hx Substance Use: No substance use type: does not use Last Used Substance Other:: 2017 Review of Systems denies fever/cough/ colds/ chest pain/ SOB/ FERCHO denies FERCHO Physical Exam Vital Signs Last Vital Signs Temp 36.8 C 11/01/23 12:46 Pulse 83 11/01/23 14:04 Resp 16 11/01/23 13:38 BP 115/57 L 11/01/23 14:04 Pulse Ox 100 11/01/23 14:01 ENMT Mouth: no TMJ abnormality and no dentition abnormality Thyromental Distance: > or= 3.5 Finger Breadths Mallampati Class: II Neck neck extension not limited Respiratory normal respiratory effort; no respiratory distress Auscultation: lungs clear to auscultation bilaterally Cardiovascular Rate/Rhythm: regular rate and regular rhythm Neurologic moves all extremities Psychiatric Orientation: alert and oriented x 3 Testing Laboratory Results 11/01/23 08:32
[2023-11-01] MEDS: LIDOCAINE 2%/EPINEPHRINE 1:200,000 20 ML PF ONE (13:35)
[2023-11-01] MEDS: BUPIVACAINE 0.25% PF 30 ML VIAL ONE (13:35)
[2023-11-01] MEDS: fentANYL 2 MCG/ML BUPIVacaine 0.125%-NSS 100ML BAG ONE (13:35)
[2023-11-01] MEDS: fentaNYL citrate PF 100 MCG/2 ML VIAL ONE (13:35)
[2023-11-01] MEDS: ePHEDrine sulfate 50 MG/ML AMP ONE (13:38)
[2023-11-01] MEDS: SODIUM CHLORIDE 0.9% PF INJ 10 ML VIAL ONE (13:38)
[2023-11-01] MEDS ORDERED: ACETAMINOPHEN 325 MG TAB PO PRN (18:15)
[2023-11-01] MEDS ORDERED: DIPHTHER/TETAN/PERTUS Vaccine (Tdap, Adol/Adult) 0.5mL IM ONE (18:15)
[2023-11-01] MEDS ORDERED: oxyCODONE/ACETAMINOPHEN 5mg/325mg TAB PO PRN (18:15)
[2023-11-01] MEDS ORDERED: HYDROCORTISONE ACETATE 25 MG SUPP PR PRN (18:15)
--- NOTE | 2023-11-01 18:20 | Delivery Summary ---
Vaginal Delivery Summary Date of Service November 01, 2023 Vaginal Delivery Summary Patient is a 27-year-old 2 para 1-0-0-1 female EDC 10/28/2023 who presents for postterm induction. A cervical balloon was placed just prior to starting Pitocin induction by protocol. She progressed to 3 cm dilated when the cervical balloon was expelled. Membranes were ruptured for clear fluid. She progressed to full dilation and pushed effectively over intact perineum for delivery of a viable male . The head was delivered without maternal effort, and a loose nuchal cord was reduced prior to delivering the shoulders. Rest of the followed easily. He was vigorous crying and moving all 4 limbs and placed on mother's abdomen for further attention and drying. After 1 minute, the cord was clamped and cut. Placenta was then expressed intact with a three-vessel cord. Bilateral labial abrasions were not bleeding and were very superficial therefore not repaired. bleeding was controlled with dilute Pitocin and fundal massage. QBL was 51 cc. Mother and infant were doing well after delivery. [facility] [place] Vaginal Delivery Charge Delivery Type Details: [facility]
--- NOTE | 2023-11-01 19:03 | Anesthesia Procedure Note ---
Date of Service November 01, 2023 Anesthesia Post Epidural Note Vital Signs Vital Signs: Temp Pulse Resp BP Pulse Ox 36.8 C 89 16 119/66 100 11/01/23 18:00 11/01/23 18:58 11/01/23 18:00 11/01/23 18:58 11/01/23 17:51 Notes Mental Status: alert / awake / arousable and participated in evaluation Nausea / Vomiting: adequately controlled Pain: adequately controlled Airway Patency, RR, SpO2: stable & adequate BP & HR: stable & adequate Hydration State: stable & adequate Neuraxial Anesthesia: was administered and sensory block resolved Anesthetic Complications: no major complications apparent and Pt Satisfied with anesthetic care Epidural: Removed without complications and With tip intact
[2023-11-01] MEDS: IBUPROFEN 600 MG TAB PO PRN (19:16)
[2023-11-01] MEDS: BENZOCAINE 20% SPRY 85 APPLN/85 GM CAN EXT PRN (19:17)
[2023-11-01] MEDS: BUPIVACAINE 0.25% PF 30 ML VIAL EPI STA (19:51)
[2023-11-01] MEDS: LIDOCAINE 2%/EPINEPHRINE 1:200,000 20 ML PF EPI STA (19:53)
[2023-11-01] MEDS: fentaNYL citrate PF 100 MCG/2 ML VIAL EPI STA (19:53)
[2023-11-01] MEDS: SODIUM CHLORIDE 0.9% PF INJ 10 ML VIAL EPI STA (19:53)
--- NOTE | 2023-11-02 06:29 | Obstetrical Progress Note ---
Date of Service <Michael Melgar - Last Filed: 11/02/23 06:31> November 02, 2023 Assessment & Plan <Michael Melgar - Last Filed: 11/02/23 06:31> (1) Encounter for assessment: visit type: exam and care immediately after delivery Qualified Code(s): Z39.0 - Encounter for care and examination of mother immediately after delivery Plan 27 y/o PPD#1: Voiding well, ambulating well, to progress to regular diet this morning Vitals reviewed, WNL Pain well controlled with Motirn Routine post care - OOB, ambulation, diet progression as tolerated Will have 6 week follow up with Dr. Lundy <Marylu Harris MD, FACOG - Last Filed: 11/02/23 08:50> (1) Encounter for assessment: Resident Physician Supervision Note: I interviewed and examined the patient. Discussed with Dr. Melgar and agree with findings and plan as documented in the note. Any exceptions or clarifications are listed here: [None] Documented By: Marylu Harris MD, FACOG Subjective <Michael MelgarDO - Last Filed: 11/02/23 06:31> Ambulation: ambulating normally Voiding: no voiding problems Diet Tolerance:: clear liquids (has not progressed to regular diet but denies N/V) Lochia:: Small Feeding Type:: bottle feeding Pain well controlled with Motrin Review of Systems -Denies fever or chills -Denies dyspnea, chest pain, or palpitations -Denies dysuria -Endorses mild BACA but denies changes in vision Physical Exam <Michael Melgar DO - Last Filed: 11/02/23 06:31> General: Alert and oriented. No acute distress Cardiac: Regular rate and rhythm, no murmurs appreciated Respiratory: Lungs clear to auscultation bilaterally, No increased work of breathing Abdominal: Soft, non-tender, non-distended. Bowel sounds present. Uterus: Uterine fundus firm, palpable below umbilicus Extremities: No lower extremity edema, calves non-tender bilaterally Results & Data <Michael GarciaDO constantino - Last Filed: 11/02/23 06:31> Vital Signs (Past 12 Hours) Vital Signs Temp Pulse Pulse Resp BP BP Pulse Ox 11/02/23 03:20 36.6 C 82 18 125/85 98 11/01/23 22:54 36.7 C 77 18 111/72 95 11/01/23 21:30 36.8 C 86 18 103/73 11/01/23 19:58 106 H 113/66 11/01/23 19:43 99 H 121/63 11/01/23 19:28 96 H 115/71 11/01/23 19:13 102 H 120/76 11/01/23 18:58 89 119/66 11/01/23 18:43 120 H 135/74 O2 Del Method 11/02/23 03:20 Room Air 11/01/23 22:54 Room Air 11/01/23 21:30 11/01/23 19:58 11/01/23 19:43 11/01/23 19:28 11/01/23 19:13 11/01/23 18:58 11/01/23 18:43 Resident Activity Tracking <Michael Melgar DO - Last Filed: 11/02/23 06:31> Resident Involvement: Resident Care Provided Care Provided: OB Delivery
[2023-11-02 06:45] LABS: Hemoglobin 9.2 g/dl (12.0-16.0); Mean Corpuscular Hemoglobin 25.4 pg (25.0-34.0); Mean Corpuscular Hgb Conc 31.7 g/dL (32.0-36.0); Mean Corpuscular Volume 80.1 fL (80.0-100.0); Mean Platelet Volume 11.6 fL (9.4-12.4); Platelet Count 251 K/uL (130-400); RDW Standard Deviation 40.4 fL (36.4-46.3); Red Blood Count 3.62 M/uL (4.20-5.40); White Blood Count 13.55 K/ul (4.8-10.8)
[2023-11-02] MEDS: PRENATAL VITAMIN 1 TAB PO SCH (08:19)
[2023-11-02] MEDS: DOCUSATE SODIUM 100 MG CAP PO SCH (08:20)
[2023-11-02] MEDS: MEASLES, MUMPS & RUBELLA VIRUS VACCINE (MMR) 0.5ML VIAL SQ ONE (17:45)
[2023-11-02] MEDS ORDERED: bisacodyL 5 MG TABEC PO SCH (20:00)
[2023-11-03] MEDS ORDERED: bisacodyL 10 MG SUPP PR PRN (08:00)
== END 2023-11-02 19:24 | disposition home or self-care (01) | DRG 807 ==
LOC: 4S1 08:08 → 4E2 21:16